=== PATIENT | female | born 1945 | race Caucasian/White ===

== ENCOUNTER 2019-05-11 12:19 | Outpatient (CLI) | payer MEDICARE, MEDICAID ==
[2019-05-11 13:28] LABS: BASOPHILS # (AUTO) 0.1 /CMM (0.0-0.2); BASOPHILS % (AUTO) 1.2 % (0.0-2.0); EOSINOPHILS % (AUTO) 3.6 % (0.0-6.0); HEMATOCRIT 33 % (33-45); HEMOGLOBIN 10.8 g/dL (11.5-14.8); LYMPHOCYTES % (AUTO) 13.2 % (20.0-44.0); MEAN CORPUSCULAR HGB CONC 33 g/dl (31.0-36.0); MEAN CORPUSCULAR VOLUME 103 fL (82-100); MONOCYTES # (AUTO) 0.4 /CMM (0.1-1.30); MONOCYTES % (AUTO) 5.5 % (2.0-12.0); NEUTROPHILS # (AUTO) 6.1 /CMM (1.8-8.9); NEUTROPHILS % (AUTO) 76.5 % (43.0-81.0); PLATELET COUNT (AUTO) 280 /CMM (150-450); RED BLOOD CELL COUNT(AUTO) 3.18 MIL/uL (4.0-5.2)
[2019-05-11 13:42] LABS: ALBUMIN 3.4 g/dL (3.4-5.0); BILIRUBIN,TOTAL 0.8 mg/dL (0.2-1.0); CREATININE 0.9 mg/dL (0.6-1.3); POTASSIUM 4.5 mmol/L (3.5-5.1); TOTAL PROTEIN, SERUM 6.9 g/dL (6.4-8.2)
[2019-05-11 13:51] LABS: FREE T4 (FREE THYROXINE) 0.94 ng/dL (0.76-1.46); THYROID STIMULATING HORMONE 2.117 uIU/mL (0.358-3.74)
== END 2019-05-11 23:59 | disposition home or self-care (01) ==
LOC: LAB 12:19
PROVIDERS: ATTEND Internal Medicine Interventional Cardiology
DX: I11.0 Hypertensive heart disease with heart failure (principal); E11.9 Type 2 diabetes mellitus without complications
CPT/HCPCS: 36415; 80053-TC; 84439-TC; 84443-TC; 85025-TC

== ENCOUNTER 2019-12-18 13:44 | Inpatient (IN) | payer MEDICARE, OTHER ==
[~2019-12-18] VITALS: Ht 165.1 cm; Wt 66.2 kg
--- NOTE | 2019-12-18 13:44 | NUR ---
PT BIB DAUGHTER FROM HOME C/O PALPITATIONS AND SOB AFTER WALKING. PT IS AAOX3, NOT IN RESPIRATORY DISTRESS, HOOKED TO BATCH MIXING TRUCK DRIVER, KEPT RESTED AND COMFORTABLE. WILL CONTINUE TO MONITOR.
--- NOTE | 2019-12-18 13:57 | NUR ---
SEEN AND EXAMINED BY .
[2019-12-18] MEDS ORDERED: AMIODARONE 150 MG in IV D5W 100 ML IV SCH (14:00)
[2019-12-18] MEDS ORDERED: AMIODARONE 450 MG in IV D5W 250 ML IV ONE (14:00)
--- NOTE | 2019-12-18 14:00 | NUR ---
IV LINE ESTABLISHED BLOOD DRAWN AND SENT TO LAB.
--- NOTE | 2019-12-18 14:08 | NUR ---
MEAT STRINGER AT BEDSIDE FOR XRAY.
[2019-12-18 14:19] LABS: BASOPHILS # (AUTO) 0.1 /CMM (0.0-0.2); BASOPHILS % (AUTO) 0.9 % (0.0-2.0); EOSINOPHILS % (AUTO) 3.1 % (0.0-6.0); HEMATOCRIT 33 % (33-45); HEMOGLOBIN 10.8 g/dL (11.5-14.8); LYMPHOCYTES # (AUTO) 0.9 /CMM (0.8-4.8); LYMPHOCYTES % (AUTO) 15.4 % (20.0-44.0); MEAN CORPUSCULAR HGB CONC 33 g/dl (31.0-36.0); MEAN CORPUSCULAR VOLUME 101 fL (82-100); MONOCYTES # (AUTO) 0.4 /CMM (0.1-1.30); MONOCYTES % (AUTO) 7.2 % (2.0-12.0); NEUTROPHILS # (AUTO) 4.3 /CMM (1.8-8.9); NEUTROPHILS % (AUTO) 73.4 % (43.0-81.0); PLATELET COUNT (AUTO) 228 /CMM (150-450); RED BLOOD CELL COUNT(AUTO) 3.26 MIL/uL (4.0-5.2); WHITE BLOOD COUNT (AUTO) 5.9 K/uL (4.3-11.0)
--- NOTE | 2019-12-18 14:30 | NUR ---
AMIODARONE DRIP STARTED WITH DISK FILTER. PT IS ON CARIDAC MONITOR, V/S STABLE, KEPT RESTED AND COMFORTABLE. WILL CONTINUE TO MONITOR.
[2019-12-18 14:32] LABS: ALANINE AMINOTRANSFERASE 92 U/L (12-78); ALBUMIN 3.3 g/dL (3.4-5.0); ALKALINE PHOSPHATASE 242 U/L (46-116); ASPARTATE AMINOTRANSFERASE 76 U/L (15-37); BILIRUBIN,DIRECT 0.3 mg/dL (0.0-0.2); BILIRUBIN,TOTAL 1.1 mg/dL (0.2-1.0); CALCIUM, SERUM 8.6 mg/dL (8.5-10.1); CARBON DIOXIDE 26 mmol/L (21-32); CHLORIDE 103 mmol/L (98-107); CREATININE 1.6 mg/dL (0.6-1.3); GLUCOSE 194 mg/dL (74-106); POTASSIUM 3.7 mmol/L (3.5-5.1); SODIUM SERUM 140 mmol/L (136-145); TOTAL PROTEIN, SERUM 6.5 g/dL (6.4-8.2); UREA NITROGEN, BLOOD 39 mg/dL (7-18)
[2019-12-18] MEDS ORDERED: APIX2.5T PO (14:36)
--- NOTE | 2019-12-18 14:39 | NUR ---
COVID SPECIMEN COLLECTED AND SENT TO LAB.
[2019-12-18] MEDS ORDERED: SITA1TAB2 PO (14:40)
[2019-12-18] MEDS ORDERED: VALS160T29 PO (14:40)
[2019-12-18] MEDS ORDERED: FURO40TA5 PO (14:40)
[2019-12-18] MEDS ORDERED: ROSU10TA29 PO (14:40)
[2019-12-18] MEDS ORDERED: SPIR25TA6 PO (14:40)
[2019-12-18] MEDS ORDERED: HYDR25TA4 PO (14:40)
[2019-12-18] MEDS ORDERED: FLUO20CA42 PO (14:40)
[2019-12-18] MEDS ORDERED: ISOS120T13 PO (14:40)
[2019-12-18] MEDS ORDERED: GLIM4TAB37 PO (14:40)
[2019-12-18] MEDS ORDERED: METO-358 PO (14:40)
--- NOTE | 2019-12-18 15:17 | NUR ---
CALLED [facility], PAGED DEAN
[2019-12-18] MEDS ORDERED: FUROSEMIDE 40 MG/4 ML VIAL IV ONE (15:30)
[2019-12-18] MEDS ORDERED: FUROSEMIDE 40 MG/4 ML VIAL ONE (15:48)
--- NOTE | 2019-12-18 16:15 | NUR ---
CALLED NURSING SUP FOR BED
--- NOTE | 2019-12-18 16:36 | NUR ---
REPORT GIVEN TO FILI LOPEZ FOR KELI. WITH ONGOING AMIODARONE DRIP.
--- NOTE | 2019-12-18 16:49 | NUR ---
BED 108
[2019-12-18] MEDS ORDERED: ACETAMINOPHEN 325 MG TABLET PO PRN (17:30)
[2019-12-18] MEDS ORDERED: ONDANSETRON HCL/PF 4 MG/2 ML VIAL IVP PRN (17:30)
[2019-12-18] MEDS ORDERED: HYDROCODONE/APAP 5/325MG TABLET PO PRN (17:30)
[2019-12-18] MEDS ORDERED: MAGNESIUM HYDROXIDE 30 ML UDC PO PRN (17:30)
[2019-12-18] MEDS ORDERED: Z GUARD REMEDY 2 OZ OINT TP PRN (17:30)
[2019-12-18] MEDS ORDERED: MAG HYDROX/AL HYDROX/SIMETH 30 ML UDC PO PRN (17:30)
[2019-12-18 18:00] VITALS: BP 119/79
[2019-12-18] MEDS ORDERED: AMIODARONE 450 MG in IV D5W 250 ML IV PRN (18:00)
--- NOTE | 2019-12-18 18:00 | NUR ---
RN TD1 REPORT TAKEN FROM ANTONIO . PATIENT CAME TO HOSPITAL DUE TO PALPITATION. AFTER A SHORT WALK PATIENT FELT SOB. AND BROUGHT TO HOSPITAL PATIENT A/OX 4 COOPERATIVE WITH CARE SPEAKS HAITIAN AND VENEZUELAN. PATIENT HX HTN CHF AND DM RAPID NEGATIVE. NKA , VITALS STABLE AT THIS TIME. NO SIGNS OF SOB, NO PAIN , NO ACUTE RESPIRATORY DISTRESS. PATIENT LABS 1.6 CREAT. 39 BUN. PATIENT HAS L 18 G AC , PATENT AND INTACT,NO SIGNS OF INFILTRATION OR S/S INFECTION. RECIVED FROM ER WITH AMNIODORON DRIP RUNNING @ 35.533 .KG/MIMN BED LOCKED LOWEST POSIITON CALL LIGHT WITH INREACH ALL SAFETY MEASURE IMPLEMENTED PER HOSPITAL POLICY. WILL ENDORSE TO PM SHIFT
[2019-12-18] MEDS: ATORVASTATIN 10 MG TABLET PO SCH (18:22)
[2019-12-18] MEDS: METOPROLOL SUCCINATE 50 MG TAB.SR.24H PO SCH (18:24)
--- NOTE | 2019-12-18 19:10 | NUR ---
RN NOTES RECEIVED PT ON BED AWAKE A/O X 4, ON O2 VIA NC @ 2L SPO2 98% NO COMPLAINTS OF PAIN, TELE MONITOR READS CONTROLLED AFIB ON AMIODARONE DRIP VIA LEFT AC @ 34.533MG/HR RATE INFUSING WELL, SAFETY MEASURE MAINTAINED BED ON LOWEST POSITION AND LOCKED SIDERAILS UP CALL LIGHT WITHIN REACH WILL CONT TO MONITOR
[2019-12-18 20:00] VITALS: BP 119/79
--- NOTE | 2019-12-18 20:30 | NUR ---
RN NOTES AMIODARONE DRIP RATE CHANGE TO 0.5MG/HR PER PROTOCOL LATEST V/S OF THE PT IS 119/79 HR 90 TELE MONITOR READS CONTROLLED AFIB 90'S WILL CONT TO MONITOR
[2019-12-19] VITALS: BP 114/68
--- NOTE | 2019-12-19 00:58 | NUR ---
0058 OBTAINED AN ORDER FROM KRISTI LIVE FOR EKG IN AM TO RE-EVAL AFIB RVR. ORDER NOTED AND CARRIED OUT.
[2019-12-19 04:00] VITALS: BP 129/85
[2019-12-19 06:17] LABS: BASOPHILS # (AUTO) 0.1 /CMM (0.0-0.2); EOSINOPHILS % (AUTO) 3.5 % (0.0-6.0); HEMATOCRIT 30 % (33-45); HEMOGLOBIN 10.3 g/dL (11.5-14.8); LYMPHOCYTES # (AUTO) 0.8 /CMM (0.8-4.8); MEAN CORPUSCULAR HGB CONC 34 g/dl (31.0-36.0); MEAN CORPUSCULAR VOLUME 100 fL (82-100); MONOCYTES # (AUTO) 0.5 /CMM (0.1-1.30); MONOCYTES % (AUTO) 7.6 % (2.0-12.0); NEUTROPHILS # (AUTO) 4.4 /CMM (1.8-8.9); NEUTROPHILS % (AUTO) 73.9 % (43.0-81.0); PLATELET COUNT (AUTO) 209 /CMM (150-450); RED BLOOD CELL COUNT(AUTO) 3.05 MIL/uL (4.0-5.2)
[2019-12-19 06:53] LABS: CALCIUM, SERUM 8.6 mg/dL (8.5-10.1); CREATININE 1.3 mg/dL (0.6-1.3); PHOSPHORUS 3.4 mg/dL (2.5-4.9); POTASSIUM 2.9 mmol/L (3.5-5.1)
--- NOTE | 2019-12-19 07:05 | NUR ---
PT AWAKE IN BED. A/O TO PERSON, PLACE, SITUATION. ON 2L/MIN NASAL CANNULA SPO2 96%. BILAT LOWER EXTREMITY EDEMA NOTED +1. ON TELE A FIB HR 90S. SKIN INTACT. L AC FLUSHED PATENT. DRESSING DRY AND INTACT. NO BP OR BLOOD DRAW ON R ARM NOTED AND INSTRUCTIONS ON HOB WALL. WILL MONITOR HR AND TELE THROUGHOUT THE DAY. MONITOR VS THROUGHOUT THE DAY. MONITOR LABS THROUGHOUT THE DAY AND REPORT NECESSARY. BED LOW, LOCKED, CALL LIGHT IN REACH, HOB ELEVATED, HOSPITAL POLICY SAFETY PRECAUTIONS IMPLEMENTED.
--- NOTE | 2019-12-19 07:14 | NUR ---
RN NOTES PT ON BED ASLEEP NO SIGN AND SYMPTOMS OF RESPIRATORY DISTRESS NO COMPLAINT OF PAIN TELE MONITOR READS SINUS RHYTHM WITH LBBB HR 90S SINCE 0600 THEN CONVERTED AGAIN TO CONTROLLED AFIB @ 0630, STILL ON AMIODARONE DRIP @ 0.5MG/HR NO SIGNIFICANT CHANGES ON CONDITION NOTED ALL NEEDS ATTENDED SAFETY MEASURE MAINTAINED BED ON LOWEST POSITION AND LOCKED SIDE RAILS UP X2 CALL LIGHT WITHIN REACH WILL ENDORSED TO AM SHIFT NURSE
[2019-12-19 08:00] VITALS: BP 127/81
[2019-12-19] MEDS: AMIODARONE HCL 200 MG TABLET PO SCH ×3 (09:00→17:38)
[2019-12-19] MEDS: ISOSORBIDE MONONITRATE (30MG) 30 MG TAB.SR.24H PO SCH (09:00)
[2019-12-19] MEDS: FUROSEMIDE 40 MG/4 ML VIAL IV SCH (09:01)
[2019-12-19] MEDS: POTASSIUM CHLORIDE 20 MEQ TAB.PRT.SR PO SCH ×4 (09:01→13:20)
[2019-12-19] MEDS: VALSARTAN 80 MG TABLET PO SCH (09:01)
[2019-12-19] MEDS: SPIRONOLACTONE 25 MG TABLET PO SCH (09:02)
[2019-12-19] MEDS: FLUOXETINE HCL 20 MG CAPSULE PO SCH (09:02)
[2019-12-19 09:18] LABS: THYROID STIMULATING HORMONE 1.637 uIU/mL (0.358-3.74)
--- NOTE | 2019-12-19 11:00 | NUR ---
INFORMED MARIA TERESA AND DEAN THAT PT EXPERIENCED 1 EPISODE OF EMESIS. ORDERED ZOFRAN PROVIDED. STARTED ORDERED PO AMIODARONE ORDERED AND DC IV AMIODARONE PER MARIA TERESA ORDERS. GIVE PO POTASSIUM ORDERED FOR 2.9 K LEVEL. HR NOW BETWEEN 50-120S. MARIA TERESA AND DEAN AWARE ALL PT STATUS. PT TOLERATING WELL. NO SOB. PT REMAINS IN A FIB 100-120.
[2019-12-19 12:00] VITALS: BP 94/45
--- NOTE | 2019-12-19 13:00 | NUR ---
PT TOLERATED SACRUM WOUND DEBRIDMENT WELL. MILD BLEEDING. APPLIED PRESSURE WITH GAUZE. COVERED WITH DAKINS SOLUTION, GAUZE, AND TAPED GAUZE AROUND SACRUM ORDERED. WILL MONITOR FOR BLEEDING. NO COMPLICATIONS NOTED. Addendum: 12/19/19 at 1911 by LAW CARTER RN CORRECTION WRONG PATIENT
[2019-12-19] MEDS ORDERED: AMIODARONE 150 MG in IV D5W 100 ML IV ONE (14:00)
[2019-12-19 16:00] VITALS: BP 115/86
[2019-12-19] MEDS: APIXABAN 2.5 MG TABLET PO SCH (17:38)
[2019-12-19] MEDS: METOPROLOL SUCCINATE 50 MG TAB.SR.24H PO SCH (17:39)
[2019-12-19] MEDS: ATORVASTATIN 10 MG TABLET PO SCH (17:39)
--- NOTE | 2019-12-19 19:05 | NUR ---
PT AWAKE IN BED. A/O TO PERSON, PLACE, SITUATION. ON 2L/MIN NASAL CANNULA SPO2 94-97%. BILAT LOWER EXTREMITY EDEMA NOTED +1 UNCHANGED. ON TELE A FIB HR 70S-100S. SKIN INTACT. L WRIST FLUSHED PATENT. DRESSING DRY AND INTACT. NO BP OR BLOOD DRAW ON R ARM NOTED AND INSTRUCTIONS ON HOB WALL. MONITORED HR AND TELE THROUGHOUT THE DAY. MONITORED VS THROUGHOUT THE DAY. MONITORED LABS THROUGHOUT THE DAY AND REPORTED NECESSARY. BED LOW, LOCKED, CALL LIGHT IN REACH, HOB ELEVATED, HOSPITAL POLICY SAFETY PRECAUTIONS IMPLEMENTED. ORDERS CARRIED OUT. PT TOLERATING WELL.
--- NOTE | 2019-12-19 19:10 | NUR ---
RN NOTES RECEIVED PT ON BED AWAKE A/O X 4, ON O2 VIA NC @ 2L SPO2 98% NO COMPLAINTS OF PAIN, TELE MONITOR READS CONTROLLED AFIB hr 120''S COMBUSTION ANALYST AWARE, SAFETY MEASURE MAINTAINED BED ON LOWEST POSITION AND LOCKED SIDERAILS UP CALL LIGHT WITHIN REACH WILL CONT TO MONITOR
[2019-12-19 20:00] VITALS: BP 112/75
[2019-12-20] VITALS: BP 90/56
[2019-12-20 04:00] VITALS: BP 104/61
[2019-12-20 06:43] LABS: BASOPHILS % (AUTO) 0.5 % (0.0-2.0); EOSINOPHILS % (AUTO) 0.8 % (0.0-6.0); HEMATOCRIT 30 % (33-45); HEMOGLOBIN 10.1 g/dL (11.5-14.8); LYMPHOCYTES # (AUTO) 0.8 /CMM (0.8-4.8); LYMPHOCYTES % (AUTO) 8.7 % (20.0-44.0); MEAN CORPUSCULAR HGB CONC 34 g/dl (31.0-36.0); MEAN CORPUSCULAR VOLUME 100 fL (82-100); MONOCYTES # (AUTO) 0.5 /CMM (0.1-1.30); MONOCYTES % (AUTO) 5.6 % (2.0-12.0); NEUTROPHILS # (AUTO) 7.7 /CMM (1.8-8.9); NEUTROPHILS % (AUTO) 84.4 % (43.0-81.0); PLATELET COUNT (AUTO) 194 /CMM (150-450); RED BLOOD CELL COUNT(AUTO) 2.99 MIL/uL (4.0-5.2); WHITE BLOOD COUNT (AUTO) 9.1 K/uL (4.3-11.0)
--- NOTE | 2019-12-20 06:50 | NUR ---
RN NOTES PT ON BED ASLEEP NO SIGN AND SYMPTOMS OF RESPIRATORY DISTRESS NO COMPLAINT OF PAIN TELE MONITOR READS CONTROLLED AFIB @ 0630, NO SIGNIFICANT CHANGES ON CONDITION NOTED ALL NEEDS ATTENDED SAFETY MEASURE MAINTAINED BED ON LOWEST POSITION AND LOCKED SIDE RAILS UP X2 CALL LIGHT WITHIN REACH WILL ENDORSED TO AM SHIFT NURSE
[2019-12-20 07:12] LABS: ALANINE AMINOTRANSFERASE 62 U/L (12-78); ALBUMIN 2.8 g/dL (3.4-5.0); ALKALINE PHOSPHATASE 214 U/L (46-116); ASPARTATE AMINOTRANSFERASE 24 U/L (15-37); CALCIUM, SERUM 8.5 mg/dL (8.5-10.1); CARBON DIOXIDE 28 mmol/L (21-32); CHLORIDE 100 mmol/L (98-107); CREATININE 1.4 mg/dL (0.6-1.3); GLUCOSE 254 mg/dL (74-106); MAGNESIUM 2.1 mg/dL (1.8-2.4); PHOSPHORUS 3.2 mg/dL (2.5-4.9); POTASSIUM 3.8 mmol/L (3.5-5.1); SODIUM SERUM 136 mmol/L (136-145); TOTAL PROTEIN, SERUM 5.9 g/dL (6.4-8.2); UREA NITROGEN, BLOOD 34 mg/dL (7-18)
--- NOTE | 2019-12-20 07:30 | NUR ---
MAURI RN AM NOTES PT AWAKE IN BED. A/O TO PERSON, PLACE, SITUATION. ON 2L/MIN NASAL CANNULA SPO2 100%. AFIB ON MONITOR WITH BBB AND AVB.DENIES ANY CHEST PAIN OR DISCOMFORT. LEFT HAND G 20 IV FLUSHES WELL, SITE CLEAR. CARDIAC DIET. BILAT LOWER EXTREMITY EDEMA NOTED +1. SKIN INTACT. NO BP OR BLOOD DRAW ON R ARM NOTED AND INSTRUCTIONS ON HOB WALL. AMBULATORY WITH ASSIST. BED LOW, LOCKED, CALL LIGHT IN REACH, HOB ELEVATED, DISCUSSED PLAN OF CARE. VERBALIZED UNDERSTANDING. HOSPITAL POLICY SAFETY PRECAUTIONS IMPLEMENTED. WILL MONITOR.
[2019-12-20 08:00] VITALS: BP 100/67
[2019-12-20] MEDS: FUROSEMIDE 40 MG/4 ML VIAL IV SCH (08:21)
[2019-12-20] MEDS: FLUOXETINE HCL 20 MG CAPSULE PO SCH (08:21)
[2019-12-20] MEDS: SPIRONOLACTONE 25 MG TABLET PO SCH (08:21)
[2019-12-20] MEDS: ISOSORBIDE MONONITRATE (30MG) 30 MG TAB.SR.24H PO SCH (08:22)
[2019-12-20] MEDS: AMIODARONE HCL 200 MG TABLET PO SCH (08:23)
[2019-12-20] MEDS: VALSARTAN 80 MG TABLET PO SCH (08:23)
[2019-12-20] MEDS: APIXABAN 2.5 MG TABLET PO SCH ×2 (08:24→16:54)
--- NOTE | 2019-12-20 09:30 | NUR ---
RN NOTES DUE MEDS GIVEN
[2019-12-20] MEDS: METOPROLOL SUCCINATE 50 MG TAB.SR.24H PO SCH ×2 (10:06→16:54)
[2019-12-20 12:00] VITALS: BP 92/56
[2019-12-20] MEDS ORDERED: IOHEXOL-350 100 ML VIAL IV ONE (12:14)
[2019-12-20] MEDS ORDERED: IV NS 0.9% 250 ML IV ONE (12:14)
[2019-12-20] MEDS ORDERED: METOPROLOL TARTRATE INJ 5 MG/5 ML AMPUL ONE (13:17)
[2019-12-20] MEDS ORDERED: NITROGLYCERIN 0.4 MG/TAB BOTTLE ONE (13:17)
[2019-12-20] MEDS: METOPROLOL TARTRATE INJ 5 MG/5 ML AMPUL IVP PRN ×2 (13:18→13:23)
[2019-12-20] MEDS ORDERED: NITROGLYCERIN 0.4 MG/TAB BOTTLE SL ONE (13:30)
[2019-12-20] MEDS ORDERED: IV NS 0.9% 500 ML IV PRN (13:30)
--- NOTE | 2019-12-20 13:33 | NUR ---
brought in fro CTA heart; consent signed, denies CP or SOb at this time; CTA heart completed; pt received Metoprolol 5mg IVPx 2 doses and NTG SL 1 tab; VSS after procedure; transferred back to unit viabed with same O2 ongoing at 2LPM; handoff report given to FILI Mayfield
--- NOTE | 2019-12-20 13:43 | NUR ---
RN NOTES BACK FROM CT ANGIOGRAM OF THE HEART.
[2019-12-20 16:00] VITALS: BP 109/69
[2019-12-20] MEDS: ATORVASTATIN 10 MG TABLET PO SCH (17:01)
--- NOTE | 2019-12-20 18:30 | NUR ---
CLERK SPECIALIST CLOSING NOTES PT RESTING IN BED, A/O X 3. ON 2L/MIN NASAL CANNULA SPO2 100%. AFIB ON MONITOR WITH BBB AND AVB.DENIES ANY CHEST PAIN OR DISCOMFORT. LEFT HAND G 20 IV AND LEFT AC G18 IV ACCESS,BOTH FLUSHES WELL, BOTH SITES CLEAR. CARDIAC DIET. BILAT LOWER EXTREMITY EDEMA NOTED +1. SKIN INTACT. NO BP OR BLOOD DRAW ON R ARM NOTED AND INSTRUCTIONS ON HOB WALL. AMBULATORY WITH ASSIST. BED LOW, LOCKED, CALL LIGHT IN REACH, HOB ELEVATED, HOSPITAL POLICY SAFETY PRECAUTIONS IMPLEMENTED. ALL NEEDS MET.NO OTHER SIGNIFICANT CHANGE IN CONDITION. WILL ENDORSE TO NEXT SHIFT FOR KELI.
[2019-12-20 20:00] VITALS: BP 107/68
[2019-12-21] VITALS: BP_SYST 114; BP_SYST 144; BP_DIAS 77
[2019-12-21 04:00] VITALS: BP 107/80
[2019-12-21 06:16] LABS: BASOPHILS % (AUTO) 0.6 % (0.0-2.0); EOSINOPHILS % (AUTO) 2.3 % (0.0-6.0); HEMATOCRIT 32 % (33-45); HEMOGLOBIN 10.5 g/dL (11.5-14.8); LYMPHOCYTES # (AUTO) 0.7 /CMM (0.8-4.8); LYMPHOCYTES % (AUTO) 9.7 % (20.0-44.0); MEAN CORPUSCULAR HGB CONC 33 g/dl (31.0-36.0); MEAN CORPUSCULAR VOLUME 101 fL (82-100); MONOCYTES # (AUTO) 0.5 /CMM (0.1-1.30); MONOCYTES % (AUTO) 6.9 % (2.0-12.0); NEUTROPHILS # (AUTO) 6.1 /CMM (1.8-8.9); NEUTROPHILS % (AUTO) 80.5 % (43.0-81.0); PLATELET COUNT (AUTO) 176 /CMM (150-450); RED BLOOD CELL COUNT(AUTO) 3.12 MIL/uL (4.0-5.2); WHITE BLOOD COUNT (AUTO) 7.6 K/uL (4.3-11.0)
--- NOTE | 2019-12-21 06:26 | NUR ---
RN notes Resting comfortably in bed with no distress noted. Breathing even and unlabored. On 2lpm via nasal cannula tolerating well. Alert and oriented with episodes of confusion. No complaint of pain or discomfort. Vital signs wnl. No significant change of condition. Kept clean and dry. Will endorse to next shift for continuity of care.
[2019-12-21 06:37] LABS: CARBON DIOXIDE 29 mmol/L (21-32); CHLORIDE 100 mmol/L (98-107); CREATININE 1.5 mg/dL (0.6-1.3); GLUCOSE 277 mg/dL (74-106); MAGNESIUM 2.4 mg/dL (1.8-2.4); PHOSPHORUS 3.8 mg/dL (2.5-4.9); POTASSIUM 4.4 mmol/L (3.5-5.1); SODIUM SERUM 135 mmol/L (136-145); UREA NITROGEN, BLOOD 37 mg/dL (7-18)
--- NOTE | 2019-12-21 07:30 | NUR ---
RN OPENING NOTE Patient in bed, A/Ox4, resting, on NC at 2L of O2, SPO2 is 96%, No SOB noted, respirations even and non labored, tolerating well, on tele-monitor, SR A-fib, with BBB. IV line noted on L hand, intact, IV line noted L ac, intact , patent and flushed, Cardiac diet noted. Safety measures in place, bed in lowest position, bed alarm is on, call light in reach will cont to monitor
[2019-12-21 08:00] VITALS: BP 104/65
[2019-12-21] MEDS: SPIRONOLACTONE 25 MG TABLET PO SCH (08:19)
[2019-12-21] MEDS: FLUOXETINE HCL 20 MG CAPSULE PO SCH (08:19)
[2019-12-21] MEDS: VALSARTAN 80 MG TABLET PO SCH (08:20)
[2019-12-21] MEDS: METOPROLOL SUCCINATE 50 MG TAB.SR.24H PO SCH (08:20)
[2019-12-21] MEDS: ISOSORBIDE MONONITRATE (30MG) 30 MG TAB.SR.24H PO SCH (08:21)
[2019-12-21] MEDS: APIXABAN 2.5 MG TABLET PO SCH (08:37)
--- NOTE | 2019-12-21 08:37 | NUR ---
PER DR TUTTLE, HOLD ELIQUIS DUE FOLLOWING PROCEDURE ANGIOGRAM ON 12/24/2019
[2019-12-21] MEDS: CARVEDILOL 12.5 MG TABLET PO SCH ×2 (10:00→21:02)
--- NOTE | 2019-12-21 10:00 | NUR ---
For Coreg will hold, patient BP is 104/65, HR 95
[2019-12-21 12:00] VITALS: BP 110/67
[2019-12-21 16:00] VITALS: BP 114/87
[2019-12-21] MEDS: ATORVASTATIN 10 MG TABLET PO SCH (18:11)
--- NOTE | 2019-12-21 19:02 | NUR ---
RN CLOSING NOTS Patient remains in room, resting comfortably, tolerating O2 flow well, no SOB or resp distress noted, denies pain. Comfort needs attended, safety measures in place, call light in reach, education regarding diagnosis and following procedure provided. Tele-monitor attached, occasional V tach, SR readings. Will endorse to PM shift RN for KELI
[2019-12-21 20:00] VITALS: BP 127/70
[2019-12-22] VITALS: BP 103/27
[2019-12-22 04:00] VITALS: BP 112/73
--- NOTE | 2019-12-22 04:12 | NUR ---
RN notes Patient is more alert than last night. Verbally able to communicate needs. Resting comfortably in bed with no distress noted. Breathing even and unlabored. On 2lpm via nasal cannula tolerating well. No complaint of pain or discomfort. Vital signs wnl. No significant change of condition. Kept clean and dry. Will endorse to next shift for continuity of care.
[2019-12-22 06:48] LABS: BASOPHILS # (AUTO) 0.1 /CMM (0.0-0.2); EOSINOPHILS % (AUTO) 2.8 % (0.0-6.0); HEMATOCRIT 30 % (33-45); LYMPHOCYTES # (AUTO) 0.7 /CMM (0.8-4.8); LYMPHOCYTES % (AUTO) 11.1 % (20.0-44.0); MEAN CORPUSCULAR HGB CONC 33 g/dl (31.0-36.0); MEAN CORPUSCULAR VOLUME 100 fL (82-100); MONOCYTES # (AUTO) 0.4 /CMM (0.1-1.30); MONOCYTES % (AUTO) 7.1 % (2.0-12.0); NEUTROPHILS # (AUTO) 4.7 /CMM (1.8-8.9); PLATELET COUNT (AUTO) 165 /CMM (150-450); RED BLOOD CELL COUNT(AUTO) 2.99 MIL/uL (4.0-5.2)
[2019-12-22 07:02] LABS: CALCIUM, SERUM 8.9 mg/dL (8.5-10.1); CARBON DIOXIDE 28 mmol/L (21-32); CHLORIDE 95 mmol/L (98-107); CREATININE 1.4 mg/dL (0.6-1.3); GLUCOSE 318 mg/dL (74-106); POTASSIUM 4.3 mmol/L (3.5-5.1); SODIUM SERUM 129 mmol/L (136-145); UREA NITROGEN, BLOOD 38 mg/dL (7-18)
--- NOTE | 2019-12-22 07:43 | NUR ---
DIRECTOR OF PUBLICATIONS NOTE PT IN BED, A/OX3 WITH MILD CONFUSION. PT CURRENTLY ON 3L NC, SATURATION AT 97%. LUNG SOUNDS CLEAR BILATERALLY. NO RESPIRATORY DISTRESS OR SOB. PT HAS LEFT HAND #20 INTACT AND FLUSHED WELL. NO SIGNS OF INFECTION OR INFILTRATION. LAC #20 INFILTRATED AND REMOVED AND DISCONTINUED. PT ON BOBBIN LOOSE END FINDER SHOWING A-FIB. PT IN BED LOWEST LOCKED POSITION, CALL LIGHT WITHIN REACH. ALL SAFETY MEASURES IN PLACE. WILL CONTINUE TO MONITOR CLOSELY.
[2019-12-22 08:00] VITALS: BP 127/82
[2019-12-22] MEDS: FLUOXETINE HCL 20 MG CAPSULE PO SCH (08:18)
[2019-12-22] MEDS: ISOSORBIDE MONONITRATE (30MG) 30 MG TAB.SR.24H PO SCH (08:19)
[2019-12-22] MEDS: SPIRONOLACTONE 25 MG TABLET PO SCH (08:20)
[2019-12-22] MEDS: CARVEDILOL 12.5 MG TABLET PO SCH ×2 (08:20→20:51)
[2019-12-22] MEDS: VALSARTAN 80 MG TABLET PO SCH ×2 (08:20→09:00)
[2019-12-22] MEDS ORDERED: IV NS 0.9% 1,000 ML IV PRN (09:30)
[2019-12-22] MEDS: ENOXAPARIN SODIUM 60 MG/0.6 ML DISP.SYRIN SQ SCH ×2 (10:24→20:51)
[2019-12-22 12:00] VITALS: BP 119/70
--- NOTE | 2019-12-22 13:36 | NUR ---
NURSE AIDE NOTE: 160 MG VALSARTAN NOT ADMINISTERED, BP 119/70. ALL OTHER AM MEDS ADMINISTERED.
[2019-12-22 16:00] VITALS: BP 121/73
[2019-12-22] MEDS: ATORVASTATIN 10 MG TABLET PO SCH (18:19)
--- NOTE | 2019-12-22 18:27 | NUR ---
PT IN BED, A/O X 3, MILD CONFUSION AT TIME. PT ON NC 3 L. SATURATING AT 96%. NO RESPIRATORY DISTRESS OR SOB. BANANA ROOM CUTTER SHOWS A-FIB. PT SKIN REMAINS INTACT, NO CHANGES. PT REMAINS ON CARDIAC LOW FAT DIET. PT PREVIOUSLY HAD LAC #20, LEFT WRIST #22, BOTH D/C. PT HAS LEFT HAND #20 TKO, INTACT AND NO SIGNS OF INFECTION OR INFILTRATION. PT ALBE TO MOVE TO BEDSIDE COMMODE WITH X 1 ASSIST, 3X TIMES. PT IN BED LOWEST LOCKED POSITION. CALL LIGHT WITHIN REACH. ALL SAFETY MEASURES IN PLACE. WILL REPORT TO ONCCHACORTA RN FOR KELI. Addendum: 12/22/19 at 1833 by ALEKSANDRA JACOBSEN RN STAFF PHYSICIAN NOTE: PT IN BED, A/O X 3, MILD CONFUSION AT TIME. PT ON NC 3 L. SATURATING AT 96%. NO RESPIRATORY DISTRESS OR SOB. BANANA ROOM CUTTER SHOWS A-FIB. PT SKIN REMAINS INTACT, NO CHANGES. PT REMAINS ON CARDIAC LOW FAT DIET. PT PREVIOUSLY HAD LAC #20, LEFT WRIST #22, BOTH D/C. PT HAS LEFT HAND #20 TKO, INTACT AND NO SIGNS OF INFECTION OR INFILTRATION. PT ALBE TO MOVE TO BEDSIDE COMMODE WITH X 1 ASSIST, 3X TIMES. PT IN BED LOWEST LOCKED POSITION. CALL LIGHT WITHIN REACH. ALL SAFETY MEASURES IN PLACE. WILL REPORT TO ONCOMING RN FOR KELI.
--- NOTE | 2019-12-22 19:05 | NUR ---
RN NOTE PATIENT IS 74 Y/O FEMALE WITH DX OF AFIB WITH RVR. PATIENT IS AWAKE, ALERT, ORIENTED X3, CURRENTLY WATCHING TV. ABLE TO MAKE NEEDS KNOWN, SPEECH IS CLEAR. ON 3 LITERS O2 VIA NC, O2 SAT IS 98% AT THIS TIME. BREATHING IS EVEN AND UNLABORED. NO SOB NOTED AT THIS TIME. PATIENT IS AMBULATORY WITH ASSIST. ABLE TO USE BEDSIDE COMMODE. SKIN IS INTACT. IV SITE ON LEFT HAND GAUGE 20 IS CLEAN, DRY, AND PATENT. NO APPARENT DISTRESS NOTED AT THIS TIME. NO C/O OF PAIN AT THIS TIME. CALL LIGHT IS WITHIN EASY REACH. WILL CONTINUE TO MONITOR.
[2019-12-22 20:00] VITALS: BP 109/71
[2019-12-23] VITALS: BP 128/89
[2019-12-23 04:00] VITALS: BP 131/88
--- NOTE | 2019-12-23 06:49 | NUR ---
RN NOTE PATIENT REMAINED STABLE THROUGHOUT THE NIGHT. NO SIGNIFICANT CHANGES NOTED. PATIENT IS KEPT CLEAN, DRY, AND COMFORTABLE. ALL DUE MEDS GIVEN ORDERED AND TOLERATED WELL. NO COMPLAINTS OF ANY PAIN. ALL NEEDS ATTENDED AND MET. WILL CONTINUE TO MONITOR.
[2019-12-23 06:51] LABS: BASOPHILS # (AUTO) 0.1 /CMM (0.0-0.2); BASOPHILS % (AUTO) 1.1 % (0.0-2.0); EOSINOPHILS % (AUTO) 1.8 % (0.0-6.0); HEMATOCRIT 31 % (33-45); HEMOGLOBIN 10.6 g/dL (11.5-14.8); LYMPHOCYTES # (AUTO) 0.6 /CMM (0.8-4.8); LYMPHOCYTES % (AUTO) 8.5 % (20.0-44.0); MEAN CORPUSCULAR HGB CONC 34 g/dl (31.0-36.0); MEAN CORPUSCULAR VOLUME 99 fL (82-100); MONOCYTES # (AUTO) 0.5 /CMM (0.1-1.30); MONOCYTES % (AUTO) 6.8 % (2.0-12.0); NEUTROPHILS % (AUTO) 81.8 % (43.0-81.0); PLATELET COUNT (AUTO) 181 /CMM (150-450); RED BLOOD CELL COUNT(AUTO) 3.16 MIL/uL (4.0-5.2); WHITE BLOOD COUNT (AUTO) 7.3 K/uL (4.3-11.0)
[2019-12-23 07:11] LABS: ALANINE AMINOTRANSFERASE 82 U/L (12-78); ALKALINE PHOSPHATASE 251 U/L (46-116); ASPARTATE AMINOTRANSFERASE 26 U/L (15-37); BILIRUBIN,TOTAL 0.9 mg/dL (0.2-1.0); CALCIUM, SERUM 9.2 mg/dL (8.5-10.1); CARBON DIOXIDE 26 mmol/L (21-32); CHLORIDE 98 mmol/L (98-107); CREATININE 1.4 mg/dL (0.6-1.3); GLUCOSE 347 mg/dL (74-106); MAGNESIUM 2.3 mg/dL (1.8-2.4); PHOSPHORUS 3.3 mg/dL (2.5-4.9); POTASSIUM 4.8 mmol/L (3.5-5.1); SODIUM SERUM 133 mmol/L (136-145); TOTAL PROTEIN, SERUM 6.5 g/dL (6.4-8.2); UREA NITROGEN, BLOOD 39 mg/dL (7-18)
--- NOTE | 2019-12-23 07:43 | NUR ---
SPRING COILER HAND NOTE: PT IS AWAKE, ALERT AND ORIENTED X3 WITH MILD CONFUSION, EATING BREAKFAST. PT ON 3L NC O2 SAT 97%. BREATHING IS EVEN WITH SOB. WILL INFORM JEWEL INSPECTOR AND MD OF PT CONDITION. LUNGS SOUNDS CLEAR BILATERALLY, DIMINISHED AT BASES. PT ON SYSTEM OPERATION SUPERINTENDENT SHOWING A-FIB, HR 82. PT HAS LEFT HAND #22, WITH NS RUNNING 70 ML/HR. IV SITE IS INTACT WITH NO SIGNS OF INFECTION OR INFILTRATION. PT IN BED LOWEST LOCKED POSITION. CALL LIGHT WITHIN REACH. ALL SAFETY MEASURES IN PLACE. WILL CONTINUE TO MONITOR CLOSELY.
[2019-12-23 08:00] VITALS: BP 127/89
[2019-12-23] MEDS: ISOSORBIDE MONONITRATE (30MG) 30 MG TAB.SR.24H PO SCH (08:39)
[2019-12-23] MEDS: FLUOXETINE HCL 20 MG CAPSULE PO SCH (08:40)
[2019-12-23] MEDS: VALSARTAN 80 MG TABLET PO SCH (08:40)
[2019-12-23] MEDS: CARVEDILOL 12.5 MG TABLET PO SCH ×2 (08:41→20:32)
[2019-12-23] MEDS: SPIRONOLACTONE 25 MG TABLET PO SCH (08:41)
[2019-12-23] MEDS: ENOXAPARIN SODIUM 60 MG/0.6 ML DISP.SYRIN SQ SCH (08:44)
[2019-12-23 09:49] LABS: ABG OXYGEN SATURATION 92.1 % (92.0-98.5); ABG PCO2 46.9 mmHg (35.0-45.0); ABG PH 7.343 (7.350-7.450); ABG PO2 66.7 mmHg (75.0-100.0); AaDO2 106.6 mmHg; O2Hb 91.2 % (94.0-97.0); SITE, ABG Left Radial; VENT MODE, BG 3 LPM
[2019-12-23] MEDS: FUROSEMIDE 40 MG/4 ML VIAL IV SCH ×3 (10:01→17:01)
[2019-12-23 12:00] VITALS: BP 100/74
[2019-12-23] MEDS: BLOOD SUGAR DIAGNOSTIC 1 EACH STRIP VI SCH ×3 (12:48→21:21)
--- NOTE | 2019-12-23 12:50 | NUR ---
STORY TELLER - CHECK PATIENT BS 430 CALLED PRIMARY FOR ORDERS TELEPHONE ORDER - MODERATE SLIDING SCALE ACCUCHECK ACHS
[2019-12-23] MEDS: INSULIN REGULAR, HUMAN 100 UNIT/ML 3 ML VIAL SQ PRN ×2 (12:51→17:26)
[2019-12-23] MEDS ORDERED: DEXTROSE 50%-WATER 50 ML DISP.SYRIN IV PRN (13:00)
[2019-12-23 16:00] VITALS: BP 106/70
[2019-12-23] MEDS: ATORVASTATIN 10 MG TABLET PO SCH (17:01)
--- NOTE | 2019-12-23 18:00 | NUR ---
PAGEANT DIRECTOR NOTES: PT RECEIVED ALL DOSES OF LASIX PRESCRIBED BY MD. PT DENIES SOB AFTER MEDICATION INTERVENTION. NC INCREASED TO 4L PER MD ORDERS. PT SATURATION 97%.
--- NOTE | 2019-12-23 19:04 | NUR ---
DOUBLE BOTTOM DRIVER NOTE: PT IN BED, A/0X2. PT ON 4L NC O2 SATURATION 97%. PT NOT EXPERIENCING ANY SOB OR RESPIRATORY AT THIS TIME. PT APPETITE IMPROVED AFTER RECEIVING LASIX AND INSULIN. PT ON MONITOR SHOWING AFIB 100S. PT HAS 1X BM, HARD SMALL STOOL, PT REFUSED PRN MEDICATION FOR CONSTIPATION. PT IS AMBULATORY WITH 1X ASSIST, WITH SKIN INTACT. PT ON CARDIAC LOW FAT DIET. PT HAS LEFT HAND #22 INTACT, NO SIGNS OF INFECTION OR INFILTRATION. BED IN LOWEST LOCKED POSITION. CALL LIGHT WITHIN REACH. ALL SAFETY MEASURES IN PLACE. WILL GIVE REPORT TO ONCOMING RN FOR KELI
--- NOTE | 2019-12-23 19:40 | NUR ---
APPLICATION SOFTWARE ENGINEER NOTE, PATIENT IN BED, SLEEPING AT THIS TIME BUT AROUSES TO VERBAL STIMULI, ON 4L NC O2 SATURATION WITH OPTIMAL O2 SAT LEVEL, AFIB CONTROLLED IN TELE MONITOR, WITH HR HIGH 90S AT THIS TIME, PIV LINE LEFT HAND #22 INTACT, NO SIGNS OF INFECTION OR INFILTRATION, BED LOCKED AND LOWEST POSITION, CALL LIGHT WITHIN REACH, ALL SAFETY MEASURES IN PLACE, WILL CONTINUE TO MONITOR CLOSELY.
[2019-12-23 20:00] VITALS: BP 113/63
[2019-12-23] MEDS: *INSULIN REGULAR(HUMULIN R)HUM 100 UNIT/ML VIAL SQ PRN (21:26)
[2019-12-24] VITALS: BP 103/60
--- NOTE | 2019-12-24 | NUR ---
DAIRY SCIENCE TEACHER NOTES, WILL PUT PATIENT NPO AT THIS TIME FOR POSSIBLE TAX DIRECTOR PROCEDURE.
[2019-12-24 04:00] VITALS: BP 107/70
[2019-12-24 05:49] LABS: BASOPHILS # (AUTO) 0.1 /CMM (0.0-0.2); BASOPHILS % (AUTO) 1.1 % (0.0-2.0); EOSINOPHILS % (AUTO) 1.8 % (0.0-6.0); HEMATOCRIT 31 % (33-45); HEMOGLOBIN 10.4 g/dL (11.5-14.8); LYMPHOCYTES # (AUTO) 0.7 /CMM (0.8-4.8); LYMPHOCYTES % (AUTO) 11.2 % (20.0-44.0); MEAN CORPUSCULAR HGB CONC 33 g/dl (31.0-36.0); MEAN CORPUSCULAR VOLUME 100 fL (82-100); MONOCYTES # (AUTO) 0.5 /CMM (0.1-1.30); MONOCYTES % (AUTO) 7.3 % (2.0-12.0); NEUTROPHILS # (AUTO) 5.3 /CMM (1.8-8.9); NEUTROPHILS % (AUTO) 78.6 % (43.0-81.0); PLATELET COUNT (AUTO) 195 /CMM (150-450); RED BLOOD CELL COUNT(AUTO) 3.14 MIL/uL (4.0-5.2); WHITE BLOOD COUNT (AUTO) 6.7 K/uL (4.3-11.0)
[2019-12-24] MEDS ORDERED: IV SET PRIMARY PUMP SET 1 EA INFUS.SET MC ONE (05:52)
[2019-12-24] MEDS ORDERED: IV NS 0.9% 1,000 ML ONE (05:52)
[2019-12-24] MEDS ORDERED: IODIXANOL 150 ML IV ONE (05:53)
[2019-12-24] MEDS ORDERED: LIDOCAINE HCL/PF 1% 30 ML SDV ONE (05:55)
[2019-12-24 06:06] LABS: ALANINE AMINOTRANSFERASE 57 U/L (12-78); ALBUMIN 2.6 g/dL (3.4-5.0); ALKALINE PHOSPHATASE 203 U/L (46-116); ASPARTATE AMINOTRANSFERASE 14 U/L (15-37); CALCIUM, SERUM 8.6 mg/dL (8.5-10.1); CARBON DIOXIDE 30 mmol/L (21-32); CHLORIDE 99 mmol/L (98-107); CREATININE 1.4 mg/dL (0.6-1.3); GLUCOSE 174 mg/dL (74-106); PHOSPHORUS 3.2 mg/dL (2.5-4.9); POTASSIUM 4.1 mmol/L (3.5-5.1); SODIUM SERUM 136 mmol/L (136-145); TOTAL PROTEIN, SERUM 5.7 g/dL (6.4-8.2); UREA NITROGEN, BLOOD 39 mg/dL (7-18)
--- NOTE | 2019-12-24 06:21 | NUR ---
MEMORY CARE PROGRAM RESIDENT NOTE, PATIENT LEFT FOR TIRE BAGGER PROCEDURE, WILL BE REPORT ABOUT PATIENT TO ASSIGNED NURSE, PER NURSE FROM TIRE BAGGER IF PATIENT HAS THEATRE DIRECTOR WILL GO ICU AFTER PROCEDURE.
--- NOTE | 2019-12-24 06:21 | NUR ---
CREMATORY ATTENDANT NOTES, PATIENT LEFT FOR OTOLARYNGOLOGY REP FOR PROCEDURE AT THIS TIME ACCOMPANIED BY 3 NURSES IN STABLE CONDITION, A/O X3 ABLE TO VERBALIZE NEEDS AND CONCERNS.
[2019-12-24] MEDS ORDERED: NITROGLYCERIN ICAR 1,000 MCG/10 ML VIAL ICAR ONE (07:01)
[2019-12-24] MEDS ORDERED: MIDAZOLAM HCL 2 MG/2ML VIAL ONE (07:12)
[2019-12-24] MEDS ORDERED: FENTANYL PF 100MCG/2ML AMPUL ONE (07:12)
[2019-12-24] MEDS ORDERED: HEPARIN SODIUM, PORCINE 1,000 UNIT/ML VIAL ONE (07:31)
[2019-12-24] MEDS ORDERED: IODIXANOL 320MG/ML 100 ML IV ONE (07:38)
[2019-12-24 08:00] VITALS: BP 119/66
--- NOTE | 2019-12-24 08:30 | NUR ---
RN OPENING NOTE Received patient brought here by Computer Analyst with 2 RN. Alert awake on NC 3L tolerating well. O2 sat 98%. Patient has L Hand #22, and TR Band with 16ml air no signs of bleeding, pulse and circulation present. Has R Forearm #20 flushes well. Blood sugar checked and offered breakfast. Patient able to swallow with no difficulty. Vital signs within normal limits. Safety measures reinforced. Call light within reach. Will cont to monitor.
[2019-12-24] MEDS: BLOOD SUGAR DIAGNOSTIC 1 EACH STRIP VI SCH ×4 (08:44→22:59)
[2019-12-24] MEDS: ISOSORBIDE MONONITRATE (30MG) 30 MG TAB.SR.24H PO SCH (08:45)
[2019-12-24] MEDS: CARVEDILOL 12.5 MG TABLET PO SCH ×3 (08:45→22:47)
[2019-12-24] MEDS: SPIRONOLACTONE 25 MG TABLET PO SCH (08:46)
[2019-12-24] MEDS: VALSARTAN 80 MG TABLET PO SCH (08:46)
[2019-12-24] MEDS: FLUOXETINE HCL 20 MG CAPSULE PO SCH (08:46)
[2019-12-24] MEDS: INSULIN REGULAR, HUMAN 100 UNIT/ML 3 ML VIAL SQ PRN ×4 (08:47→23:00)
[2019-12-24] MEDS ORDERED: IV NS 0.9% 1,000 ML IV ONE (09:00)
--- NOTE | 2019-12-24 09:00 | NUR ---
RECEIVED ORDER FROM LINE CREW SUPERVISOR TO START NS @ 100ML/HR X6 HRS AND TO DEFLATE 3-5ML OF AIR Q15 MINS.
--- NOTE | 2019-12-24 10:45 | NUR ---
DEFLATE 0915 3ML AIR BP 119/66 HR 103 DEFLATE 0930 3ML AIR BP 96/59 HR 109 DEFLATE 0945 3ML AIR BP 94/62 HR 94 DEFLATE 1000 4ML AIR BP 94/56 HR 101
[2019-12-24 12:00] VITALS: BP 104/56
--- NOTE | 2019-12-24 13:45 | NUR ---
PATIENT'S TR BAND REMOVED NO SIGNS OF UNCONTROLLED BLEEDING. NO CO PAIN OR DISCOMFORT. POSITIVE PULSE AND CIRCULATION.
[2019-12-24 16:00] VITALS: BP 111/76
[2019-12-24] MEDS: ATORVASTATIN 10 MG TABLET PO SCH (17:20)
--- NOTE | 2019-12-24 19:35 | NUR ---
ACTIVITIES THERAPIST NOTE, PATIENT IN BED, ON 4L NC O2 SATURATION WITH OPTIMAL O2 SAT LEVEL, BREATHING EVEN AND UNLABORED, NO S/S OF ANY SOB/ACUTE DISTRESS, PAIN OR DISCOMFORT NOTED AT THIS TIME, AFIB CONTROLLED IN TELE MONITOR, WITH HR 80-100s AT THIS TIME, PIV LINE LEFT HAND #22 INTACT, AND RIGHT FA 20G, BOTH PATENT AND INTACT, NO SIGNS OF INFECTION OR INFILTRATION, LEFT RADIAL PULSE PALPABLE, NO CIRCULATION COMPROMISED, BED LOCKED AND LOWEST POSITION, CALL LIGHT WITHIN REACH, ALL SAFETY MEASURES IN PLACE, WILL CONTINUE TO MONITOR CLOSELY.
--- NOTE | 2019-12-24 19:35 | NUR ---
ENDORSED TO CHIEF RADIOLOGIC TECHNOLOGIST NURSE FOR KELI
[2019-12-24 20:00] VITALS: BP 105/55
[2019-12-25] VITALS: BP 92/54
--- NOTE | 2019-12-25 03:52 | NUR ---
PSYCHOLOGIST COUNSELING NOTES, PATIENT ENDORSED TO ISABEL PENN FOR CONTINUATION OF CARE, PATIENT WITH BP 93/46, PATIENT BREATHING EVEN AND UNLABORED, NO DISTRESS NOTED. Addendum: 12/25/19 at 1553 by MIKAELA ALANIZ RN WRONG TIME.
[2019-12-25 04:00] VITALS: BP 115/80
[2019-12-25 06:25] LABS: BASOPHILS # (AUTO) 0.1 /CMM (0.0-0.2); BASOPHILS % (AUTO) 0.8 % (0.0-2.0); EOSINOPHILS % (AUTO) 2.7 % (0.0-6.0); HEMATOCRIT 32 % (33-45); HEMOGLOBIN 10.6 g/dL (11.5-14.8); LYMPHOCYTES # (AUTO) 0.9 /CMM (0.8-4.8); LYMPHOCYTES % (AUTO) 13.4 % (20.0-44.0); MEAN CORPUSCULAR HGB CONC 33 g/dl (31.0-36.0); MEAN CORPUSCULAR VOLUME 100 fL (82-100); MONOCYTES # (AUTO) 0.5 /CMM (0.1-1.30); NEUTROPHILS % (AUTO) 75.1 % (43.0-81.0); PLATELET COUNT (AUTO) 213 /CMM (150-450); RED BLOOD CELL COUNT(AUTO) 3.21 MIL/uL (4.0-5.2); WHITE BLOOD COUNT (AUTO) 6.6 K/uL (4.3-11.0)
[2019-12-25 07:07] LABS: CALCIUM, SERUM 8.8 mg/dL (8.5-10.1); CREATININE 1.1 mg/dL (0.6-1.3); PHOSPHORUS 3.4 mg/dL (2.5-4.9); POTASSIUM 3.8 mmol/L (3.5-5.1)
[2019-12-25 07:27] LABS: MAGNESIUM 2.3 mg/dL (1.8-2.4)
--- NOTE | 2019-12-25 07:30 | NUR ---
TARE MAN NOTES, PATIENT ENDORSED TO FILI JACOBSEN FOR CONTINUATION OF CARE, PATIENT IN STABLE CONDITION, NO DISTRESS NOTED.
[2019-12-25] MEDS: INSULIN REGULAR, HUMAN 100 UNIT/ML 3 ML VIAL SQ PRN ×3 (07:33→17:08)
[2019-12-25] MEDS: BLOOD SUGAR DIAGNOSTIC 1 EACH STRIP VI SCH ×4 (07:36→21:26)
--- NOTE | 2019-12-25 08:10 | NUR ---
PEAR PICKER NOTE: PT IN BED, EYES OPEN, A/0X3. PT ON 4L NC SATURATION 97%. NO RESPIRATORY DISTRESS, SOB. LUNG SOUNDS CLEAR BILATERALLY. PT ON MONITOR SHOWING CONTROLLED AFIB. PT AMBULATORY WITH 1X ASSISTANCE, SKIN INTACT. PT HAS RFA 20G SALINE LOCKED, NO INFILTRATION OR INFECTION. BED IN LOCKED LOWEST POSITION. PT CALL LIGHT WITHIN REACH. ALL SAFETY MEASURES IN PLACE. WILL CONTINUE TO MONITOR CLOSELY.
[2019-12-25] MEDS: ISOSORBIDE MONONITRATE (30MG) 30 MG TAB.SR.24H PO SCH (08:52)
[2019-12-25] MEDS: FLUOXETINE HCL 20 MG CAPSULE PO SCH (08:52)
[2019-12-25] MEDS: SPIRONOLACTONE 25 MG TABLET PO SCH (08:53)
[2019-12-25] MEDS: CARVEDILOL 12.5 MG TABLET PO SCH ×2 (08:53→21:28)
[2019-12-25] MEDS: VALSARTAN 80 MG TABLET PO SCH (09:00)
--- NOTE | 2019-12-25 09:02 | NUR ---
ENVIRONMENTAL LAWYER NOTE: ROCK DOSE OF VALSARTAN WITHHELD, PT BP 123/84. ALDACTONE, COREG, AND IMDUR ALL GIVEN.
[2019-12-25 09:26] VITALS: BP 123/84
[2019-12-25] MEDS: DILTIAZEM HCL CD 240 MG PO SCH (10:30)
--- NOTE | 2019-12-25 10:50 | NUR ---
METAL ALLOY SCIENTIST NOTE: ROCK DOSE OF CARDIZEM WITHHELD, PER MD SET PARAMETER. PT BP 83/42, HR 94. WILL REASSESS VITALS
[2019-12-25 12:00] VITALS: BP 93/64
--- NOTE | 2019-12-25 13:12 | NUR ---
ROV[address] COURT REPORTER NOTE: PT BP INITIALLY 93/64, 15 MINUTES LATER 75/44. RECHECKED AT 80/57 MANUALLY. CARDIZEM AND VALSARTAN BOTH WITHHELD THIS AM. MD MORAN AWARE. AWAITING ORDERS OR RECOMMENDATIONS. Addendum: 12/25/19 at 1415 by ALEKSANDRA JACOBSEN RN [address] REPORTER NOTE: PT BP INITIALLY 93/64, 15 MINUTES LATER 75/44. RECHECKED AT 80/57 MANUALLY. CARDIZEM AND VALSARTAN BOTH WITHHELD THIS AM. MD MORAN AWARE, ORDER TO CONTINUE TO MONITOR, BP NOW 90/50.
--- NOTE | 2019-12-25 15:53 | NUR ---
CLIMATOLOGIST NOTES, PATIENT ENDORSED TO ISABEL PENN FOR CONTINUATION OF CARE, PATIENT WITH BP 93/46, PATIENT BREATHING EVEN AND UNLABORED, NO DISTRESS NOTED.
[2019-12-25 16:00] VITALS: BP 92/47
[2019-12-25] MEDS: ATORVASTATIN 10 MG TABLET PO SCH (17:06)
--- NOTE | 2019-12-25 19:15 | NUR ---
RN NOTES RECEIVED PT ON BED AWAKE A/O X3 ON O2 VIA NC AT 2L SPO2 98% NO SIGN AND SYMPTOMS OF RESPIARTORY DISTRESS, NO COMPLAINT OF PAIN, TELE MONITOR READS CONTROLLED AFIB 90'S SAFETY MEASURE MAINTAINED SIDE RAILS UP X3 BED ON LWOEST POSITION AND LOCKED CALL LIGHT WITHIN REACH WILL CONT TO MONITOR
--- NOTE | 2019-12-25 19:18 | NUR ---
LCSW NOTE: PT IN BED AWAKE AND ALERT. NO IN DISTRESS, NO SOB. ALL NEEDS ATTENDED, CALL LIGHT IN REACH. ALL SAFETY MEASURES OBSERVED. HAD DINNER, REPORT GIVEN TO NEXT RN FOR KELI.
[2019-12-25 20:08] VITALS: BP 106/57
[2019-12-25] MEDS: *INSULIN REGULAR(HUMULIN R)HUM 100 UNIT/ML VIAL SQ PRN (21:27)
--- NOTE | 2019-12-25 22:36 | NUR ---
REPORT GIVEN TO ИРИНА PENN FOR KELI
--- NOTE | 2019-12-25 22:38 | NUR ---
Received report from FILI Weller for KELI
[2019-12-26] VITALS (9 sets, daily range): BP systolic 90–125; BP diastolic 48–77
--- NOTE | 2019-12-26 06:54 | NUR ---
RN CLOSING NOTES: No acute changes noted throughout shift. Pt remains on O2 via NC, breathing even and unlabored. Controlled a-fib on tele monitor. Right forearm #20 patent and flushing. Kept clean/dry. Safety measures in place. Will endorse to oncoming nurse for KELI.
--- NOTE | 2019-12-26 07:15 | NUR ---
Tele/RN - Assessment Patient in bed awake, A/O X 3, denies chest pain at this time, no complaints overnight, states breathing better, on oxygen at 4lpm via NC, SpO2 93%. no apparent distress seen, tele shows A.Fib controlled. Saline lock on the RFA is patent, intact, flushing well. No labs today. Continue strict I&O monitoring. Fall and aspiration precautions maintained. Patient updated on plan of care and in agreement. Anticipate possible transfer to [facility] for MV PCI of the LCx and RCA with the need of atherectomy. Per daughter, will consult first with pt's primary photogrammetric technician, awaiting decision.
[2019-12-26] MEDS: BLOOD SUGAR DIAGNOSTIC 1 EACH STRIP VI SCH ×4 (07:32→21:21)
[2019-12-26] MEDS: INSULIN REGULAR, HUMAN 100 UNIT/ML 3 ML VIAL SQ PRN ×3 (07:35→17:03)
[2019-12-26] MEDS: SPIRONOLACTONE 25 MG TABLET PO SCH (08:17)
[2019-12-26] MEDS: CARVEDILOL 12.5 MG TABLET PO SCH ×2 (08:17→21:00)
[2019-12-26] MEDS: VALSARTAN 80 MG TABLET PO SCH (08:17)
[2019-12-26] MEDS: ISOSORBIDE MONONITRATE (30MG) 30 MG TAB.SR.24H PO SCH (08:17)
[2019-12-26] MEDS: DILTIAZEM HCL CD 240 MG PO SCH (08:17)
[2019-12-26] MEDS: FLUOXETINE HCL 20 MG CAPSULE PO SCH (08:17)
--- NOTE | 2019-12-26 14:29 | NUR ---
Tele/RN - Notes Seen and examined by Dr. Jones (Cardio), current BP 87/51, Md with order to give NS 250 bolus once, will evaluate BP meds, NPO after midnight for procedure tomorrow.
[2019-12-26] MEDS ORDERED: IV NS 0.9% 250 ML IV ONE (14:30)
--- NOTE | 2019-12-26 15:56 | NUR ---
Tele/RN - Notes Patient is awake, A.Fib controlled, denies chest pain, no c/o shortness of breath, lungs clear on auscultation, BP slightly improved 90/51 post fluid resuscitation (NS 250 ml). Will continue to monitor closely.
--- NOTE | 2019-12-26 16:00 | NUR ---
Tele/RN - Notes Relayed to Dr. Jones latest BP 90/51 MAP 64, per MD if MAP drops below 60 consider small boluses of IV NS.
[2019-12-26] MEDS: ATORVASTATIN 10 MG TABLET PO SCH (17:05)
--- NOTE | 2019-12-26 18:48 | NUR ---
Tele/RN - End of shift summary Patient's BP slowly improved, latest was 92/51 MAP 63, denies chest pain, A.Fib on the tele monitor, no apparent distress, afebrile, compliant with fluid restriction. Patient will be placed on NPO after midnight for atherectomy at [facility] scheduled for 7am, accepting MD is Dr. Jones, pick-up by Jose ([phone]) at 5am trip#[id number]. Call report to [phone] or [phone]. All needs attended. Will continue to monitor closely.
--- NOTE | 2019-12-26 19:05 | NUR ---
RN NOTES RECEIVED PT ON BED AWAKE A/O X3 ON O2 VIA NC AT 2L SPO2 98% NO SIGN AND SYMPTOMS OF RESPIRATORY DISTRESS, NO COMPLAINT OF PAIN,LATEST BP IS 95/54 HR 95 TELE MONITOR READS CONTROLLED AFIB 90'S SAFETY MEASURE MAINTAINED SIDE RAILS UP X3 BED ON LOWEST POSITION AND LOCKED CALL LIGHT WITHIN REACH WILL CONT TO MONITOR
--- NOTE | 2019-12-26 19:45 | NUR ---
1944 TRIED CALLING PATIENT'S DAUGHTER CHRIS TO INFORM HER OF PATIENT'S TRANSFER TO [place] IN AM FOR PROCEDURE 3X NO ANSWER. WILL KEEP TRYING.
--- NOTE | 2019-12-26 20:10 | NUR ---
Sherwin SPOKE WITH PATIENT'S DAUGHTER CARISSA AND SHE SAID SHE IS AWARE OF THE PROCEDURE AT [facility] IN AM AND THAT DR. TUTTLE AND DR. SAUNDERS SPOKE WITH HER ABOUT IT.
[2019-12-26] MEDS: *INSULIN REGULAR(HUMULIN R)HUM 100 UNIT/ML VIAL SQ PRN (21:22)
--- NOTE | 2019-12-26 21:23 | NUR ---
RN NOTES COREG NOT GIVEN DUE TO PT B/P IS 93/54 HR 68 WILL CONT TO MONITOR THE PT
--- NOTE | 2019-12-26 22:23 | NUR ---
BP RECHECKED 103/62 HR 63 PT IS SLEEPING WAKE UP EASILY SPO2 96%
[2019-12-27] VITALS: BP 93/59
[2019-12-27 04:00] VITALS: BP 132/62
[2019-12-27 04:24] VITALS: BP 132/62
--- NOTE | 2019-12-27 05:00 | NUR ---
RN NOTES TRANSPORT ARRIVE TO SPLICING SUPERVISOR PT, UPON PREPARING THE PT, PT ASK WEATHER STRIP MECHANIC MS JAMA WHERE SHE WILL GO AND WE TOLD HER THAT SHE WILL GO TO [facility] FOR A HEART PROCEDURE AND IT WAS SCHEDULE ALREADY AND HER DAUGHTER IS AWARE BUT PT TOLD US THAT SHE DIDNT KNOW THAT SHE WILL GO TO A SURGERY, I TOLD HER THAT HER DAUGHTER TALK TO THE DOCTOR YESTERDAY AND THEY AGREE THAT SHE WILL UNDERGO THE PROCEDURE , THE PT TOLD ME THAT SHE DONT WANT THE SURGERY AND SHE WANT TO TALK TO HER DAUGHTER, I TELL IT TO THE CHARGE NURSE WE WILL CALL THE DAUGHTER BRYANT
--- NOTE | 2019-12-27 05:25 | NUR ---
0575 DR. TUTTLE MADE AWARE THAT PATIENT IS REFUSING TO GO TO [facility]. HE SAID TALK TO PATIENT THRU [address] [facility].
--- NOTE | 2019-12-27 05:45 | NUR ---
[address] SAUNDERS AND MADE HIM AWARE THAT PATIENT IS REFUSING TO GO TO PROCEDURE UNTIL SHE TALKS TO HER DAUGHTER.
--- NOTE | 2019-12-27 05:55 | NUR ---
0555 [employer] J[employer] AND OTHER WRITERS PHONE USED TO TALK TO PATIENT IN [place], PATIENT KEPT INSISTING SHE DOES NOT KNOW ABOUT THE PROCEDURE AND WANTED TO TALK TO HER DAUGHTER FIRST. EXPLAINED TO HER THAT WE TRIED TO CALL HER DAUGHTER KIMBERLY MULTIPLE TIMES BUT NO ANSWER. PATIENT GOT UPSET TALKING THRU JOURNALISTS AND OTHER WRITERS AND JUST HUNG UP THE PHONE.
--- NOTE | 2019-12-27 06:00 | NUR ---
0600 TRANSPORT HERE TO [facility] O[facility] PATIENT BUT PATIENT IS STRONGLY REFUSING TO GO. SHE SAID SHE WANTS TO TALK TO HER DAUGHTER FIRST BECAUSE SHE CLAIMS NOBODY TOLD HER ABOUT THE PROCEDURE. CALLED PATIENT'S DAUGHTER KIMBERLY MULTIPLE TIMES BUT NO ANSWER. LEFT MESSAGE ON HER VOICEMAIL TO CALL HOSPITAL BACK. Addendum: 12/27/19 at 0630 by SANJEEV LANDIN RN 0500 TRANSPORT HERE TO [facility] PATIENT BUT PATIENT IS STRONGLY REFUSING TO GO. SHE SAID SHE WANTS TO TALK TO HER DAUGHTER FIRST BECAUSE SHE CLAIMS NOBODY TOLD HER ABOUT THE PROCEDURE. CALLED PATIENT'S DAUGHTER KIMBERLY MULTIPLE TIMES BUT NO ANSWER. LEFT MESSAGE ON HER VOICEMAIL TO CALL BACK HOSPITAL.
--- NOTE | 2019-12-27 06:05 | NUR ---
TRIED TO CALL DAUGHTER SEVERAL TIMES BUT NOT ANSWERING, WE EXPLAINED TO THE PT ABAOUT THE RISK AND BENEFITS OF THE PROCEDURE BUT PT IS KEEP ON REFUSING, WILL TRY TO REACH DAUGHTER CARISSA SOON POSSIBLE
--- NOTE | 2019-12-27 06:05 | NUR ---
FILI JOHNSON TRIED CALLING DAUGHTER PATIENT'S DAUGHTER AGAIN MULTIPLE TIMES BUT NO ANSWER.
--- NOTE | 2019-12-27 06:10 | NUR ---
0610 GLORY FROM [facility] SAME DAY SURGERY CALLED FOR REPORT. WE NOTIFIED HER THAT PATIENT IS REFUSING TO GO.
--- NOTE | 2019-12-27 06:15 | NUR ---
0615 CALLED PATIENT'S DAUGHTER AGAIN AT [phone] AND LEFT MESSAGE ON HER ANSWERING MACHINE.
--- NOTE | 2019-12-27 06:40 | NUR ---
0640 CALLED [facility] AND SPOKE TO ASHER BATES AND INFORMED HER THAT PATIENT REFUSED TO GO.
--- NOTE | 2019-12-27 06:45 | NUR ---
STILL CANNOT REACH THE DAUGHTER, CHARGE NURSE INFORMED THE SITUATION TO DR. TUTTLE AND DR. SAUNDERS AND ALSO THE [facility] PEOPLE ABOUT THE REFUSAL OF THE PT, EXPLAIN TO THE PT THAT WE WILL CANCEL THE PROCEDURE NOW BECAUSE SHE DONT WANT IT AND WE WILL STILL TRY TO CALL HER DAUGHTER SO SHE CAN TALK TO HER, PUT PT COMFORTABLY ON BED AND WE WILL CONT TO MONITOR
--- NOTE | 2019-12-27 07:26 | NUR ---
PT SLEEPING ON BED NO SIGN AND SYMPTOM OF DISTRESS NO PAIN COMPLAINT, NO SIGNIFICANT CHANGES ON CONDITION NOTED, ALL NEEDS ATTENDED, ENDORSED TO AM SHIFT ABOUT THE REFUSAL OF THE PT FOR THE HEART PROCEDURE, SAFETY MEASURE MAINTAINED BED ON LOWEST POSITION AND LOCKED SIDE RAILS UP X2
--- NOTE | 2019-12-27 07:30 | NUR ---
8073 PATIENT'S DAUGHTER CALLED BACK AND MADE HER AWARE THAT HER MOTHER WAS REFUSING TO GO WITHOUT TALKING TO HER. EXPLAINED TO HER THAT WE CANNOT FORCE PATIENT TO GO BECAUSE EVEN THRU ESTONIAN SPEAKING CATECHIST SHE WAS STRONGLY REFUSING TO GO AND GOT VERY UPSET. AFTER DAUGHTER TALKED TO PATIENT, PATIENT AGREED TO GO TO [facility] FOR PROCEDURE.
--- NOTE | 2019-12-27 07:40 | NUR ---
CALLED [facility] SAME [facility] AND SPOKE WITH FILI WARREN, SHE SAID OK TO SEND PATIENT NOW.
--- NOTE | 2019-12-27 07:45 | NUR ---
0745 [facility] WAS CALLED FOR TRANSPORT. NEW TRIP NUMBER [id number]. ETA 45 MINS.
[2019-12-27 08:00] VITALS: BP 130/76
--- NOTE | 2019-12-27 08:00 | NUR ---
SKEIN BLEACHER NOTES RECEIVED PATIENT IN BED. ALERT, AWAKE, ORIENTED WITH SOME CONFUSION. SPOKE TO DAUGHTER ELIER. OK TO SIGN CONSENT FOR MV PCI. PATIENT ON 4 LPM VIA NASAL CANNULA. NO SOB NOTED. PATIENT ON NPO. LFA HEPLOCK INTACT AND FLUSHED WELL. PLAN OF CARE DISCUSSED WITH PATIENT. BED IN LOWEST AND LOCKED POSITION. SAFETY MEASURES OBSERVED. CALL LIGHT WITHIN REACH. WILL CONTINUE TO MONITOR.
[2019-12-27] MEDS: ISOSORBIDE MONONITRATE (30MG) 30 MG TAB.SR.24H PO SCH (09:00)
[2019-12-27] MEDS: DILTIAZEM HCL CD 240 MG PO SCH (09:00)
[2019-12-27] MEDS ORDERED: VALSARTAN 80 MG TABLET PO SCH (09:00)
[2019-12-27] MEDS: CARVEDILOL 12.5 MG TABLET PO SCH (09:00)
[2019-12-27] MEDS: SPIRONOLACTONE 25 MG TABLET PO SCH (09:00)
[2019-12-27] MEDS: FLUOXETINE HCL 20 MG CAPSULE PO SCH (09:00)
[2019-12-27] MEDS: BLOOD SUGAR DIAGNOSTIC 1 EACH STRIP VI SCH (09:13)
--- NOTE | 2019-12-27 09:24 | NUR ---
SECURITY SITE SUPERVISOR NOTE AMBULANCE ARRIVED. REPORT GIVEN. PATIENT WENT TO [facility] IN STABLE CONDITION. NO SOB NOTED AT THIS TIME. BELONGINGS CHECKED AND WENT TO [facility] WITH AMBULANCE PERSONAL.
--- NOTE | 2019-12-27 11:53 | NUR ---
MONUMENT INSTALLER NOTE STILL AT [facility]
--- NOTE | 2019-12-27 15:03 | NUR ---
GROUND CREW LINES PERSON NOTES PATIENT STILL AT [facility]
--- NOTE | 2019-12-27 16:08 | NUR ---
telegraph equipment maintainer note at [facility]
--- NOTE | 2019-12-27 16:51 | NUR ---
telemetry tech note charge nurse called to [facility] to update patient condition ,stated that patient is not going to back to [facility] after procedure, dr alvarez notified
== END 2019-12-27 16:00 | disposition short-term general hospital (02) | DRG 286 ==
LOC: ER 13:54 → TELE-TD 17:03 → TELE1 12-20 15:46
PROVIDERS: ADMIT Internal Medicine; ATTEND Internal Medicine
PROC: 4A023N7 Measurement of Cardiac Sampling and Pressure, Left Heart, Percutaneous Approach (ICD-10-PCS; principal; 2019-12-24)
PROC: B211YZZ Fluoroscopy of Multiple Coronary Arteries using Other Contrast (ICD-10-PCS; 2019-12-24)
DX: I25.10 Atherosclerotic heart disease of native coronary artery without angina pectoris (principal); N17.0 Acute kidney failure with tubular necrosis; I50.23 Acute on chronic systolic (congestive) heart failure; E43 Unspecified severe protein-calorie malnutrition; I13.0 Hypertensive heart and chronic kidney disease with heart failure and stage 1 through stage 4 chronic kidney disease, or unspecified chronic kidney disease; I48.92 Unspecified atrial flutter; I48.91 Unspecified atrial fibrillation; N18.9 Chronic kidney disease, unspecified; E11.22 Type 2 diabetes mellitus with diabetic chronic kidney disease; E78.5 Hyperlipidemia, unspecified; Z79.84 Long term (current) use of oral hypoglycemic drugs; F32.9 Major depressive disorder, single episode, unspecified; E87.6 Hypokalemia; I25.2 Old myocardial infarction; I70.0 Atherosclerosis of aorta; I25.5 Ischemic cardiomyopathy; Z79.01 Long term (current) use of anticoagulants; Z85.3 Personal history of malignant neoplasm of breast; Z90.11 Acquired absence of right breast and nipple
CPT/HCPCS: 36415; 36600; 71045-TC; 74018; 75574; 80048-TC; 80053-TC; 80076-TC; 82803-TC; 82947-TC; 82962-TC; 83735-TC; 84100-TC; 84439-TC; 84443-TC; 84484-TC; 85025-TC; 85610-TC; 85730-TC; 87081-TC; 93307-TC; 97110-TC; 97112-TC; 97116-TC; 97530-TC; C1887; C9803; G0378; G0500; J0282; J1644; J1650; J1815; J1940; J2250; J2405; J3010; J3490; J7030; J7050; J7060; Q9967

== ENCOUNTER 2020-01-22 16:49 | Inpatient (IN) | payer MEDICARE, OTHER ==
[~2020-01-22] VITALS: Ht 165.1 cm; Wt 64.9 kg
[~2020-01-22 16:49] MED LIST: APIX2.5T PO; FLUO20CA42 PO; FURO40TA5 PO; GLIM4TAB37 PO; HYDR25TA4 PO; ISOS120T13 PO; METO-358 PO; ROSU10TA29 PO; SITA1TAB2 PO; SPIR25TA6 PO
[2020-01-22] MEDS ORDERED: DILTIAZEM HCL 25 MG IV IVP ONE (17:00)
[2020-01-22] MEDS ORDERED: ASPIRIN 81 MG TAB.CHEW PO ONE (17:00)
--- NOTE | 2020-01-22 17:00 | NUR ---
[id number], FROM SNF C/O CHEST PAIN. PT NOTED WITH RVR UPON ARRIVAL. NOTED WITH SOB. NO DIAPHORESIS. PT ALERT AND ABLE TO FOLLOW DIRECTIONS. AWAITING FOR MD ANTHONY
[2020-01-22] MEDS ORDERED: ACET-2605 PO (17:02)
[2020-01-22] MEDS ORDERED: INSU100V42 SQ ×2 (17:02)
[2020-01-22] MEDS ORDERED: MAGN400O6 PO (17:02)
[2020-01-22] MEDS ORDERED: ACET-868 PO (17:02)
[2020-01-22] MEDS ORDERED: INSU100I45 SQ (17:02)
[2020-01-22] MEDS ORDERED: EMPA10TA PO (17:02)
[2020-01-22] MEDS ORDERED: METO25TA6 PO (17:02)
[2020-01-22] MEDS ORDERED: BISA10SU11 RC (17:02)
[2020-01-22] MEDS ORDERED: ASPI-1420 PO (17:02)
[2020-01-22] MEDS ORDERED: ATOR40TA PO (17:02)
[2020-01-22] MEDS ORDERED: CLOP75TA15 PO (17:02)
[2020-01-22] MEDS ORDERED: INSU100V7 SQ (17:02)
[2020-01-22] MEDS ORDERED: ASPIRIN 81 MG TAB.CHEW ONE (17:11)
[2020-01-22] MEDS ORDERED: DILTIAZEM HCL 50 MG IV ONE ×2 (17:12→17:13)
[2020-01-22 17:13] LABS: BASOPHILS # (AUTO) 0.1 /CMM (0.0-0.2); BASOPHILS % (AUTO) 1.2 % (0.0-2.0); EOSINOPHILS % (AUTO) 3.4 % (0.0-6.0); HEMATOCRIT 28 % (33-45); HEMOGLOBIN 9.2 g/dL (11.5-14.8); LYMPHOCYTES # (AUTO) 0.7 /CMM (0.8-4.8); LYMPHOCYTES % (AUTO) 10.6 % (20.0-44.0); MEAN CORPUSCULAR HGB CONC 33 g/dl (31.0-36.0); MEAN CORPUSCULAR VOLUME 107 fL (82-100); MONOCYTES # (AUTO) 0.4 /CMM (0.1-1.30); MONOCYTES % (AUTO) 5.9 % (2.0-12.0); NEUTROPHILS # (AUTO) 5.1 /CMM (1.8-8.9); NEUTROPHILS % (AUTO) 78.9 % (43.0-81.0); PLATELET COUNT (AUTO) 209 /CMM (150-450); RED BLOOD CELL COUNT(AUTO) 2.66 MIL/uL (4.0-5.2); WHITE BLOOD COUNT (AUTO) 6.4 K/uL (4.3-11.0)
[2020-01-22 17:28] LABS: BILIRUBIN,DIRECT 0.5 mg/dL (0.0-0.2); BILIRUBIN,TOTAL 1.3 mg/dL (0.2-1.0); CALCIUM, SERUM 8.4 mg/dL (8.5-10.1); CREATININE 1.2 mg/dL (0.6-1.3); POTASSIUM 2.9 mmol/L (3.5-5.1); TOTAL PROTEIN, SERUM 6.2 g/dL (6.4-8.2)
--- NOTE | 2020-01-22 17:38 | NUR ---
PT IN BED ALERT AND ABLE TO FOLLOW COMMANDS. NO PAIN OR DISCOMFORT AT THIS TIME. V/S STABLE. NO SOB. ALL NEEDS ATTENDED
--- NOTE | 2020-01-22 17:45 | NUR ---
COVID SWAB TAKEN
--- NOTE | 2020-01-22 17:46 | NUR ---
EPIC MUSIC INSTRUCTOR PAGED
--- NOTE | 2020-01-22 17:52 | NUR ---
MOVE SHEET COMPLETE AND CALLED FOR BED.
[2020-01-22] MEDS ORDERED: Z GUARD REMEDY 2 OZ OINT TP PRN (19:00)
[2020-01-22] MEDS ORDERED: ACETAMINOPHEN 325 MG TABLET PO PRN (19:00)
[2020-01-22] MEDS ORDERED: MAGNESIUM HYDROXIDE 30 ML UDC PO PRN ×2 (19:00)
[2020-01-22] MEDS ORDERED: HYDROCODONE/APAP 5/325MG TABLET PO PRN (19:00)
[2020-01-22] MEDS ORDERED: DEXTROSE 50%-WATER 50 ML DISP.SYRIN IV PRN (19:00)
[2020-01-22] MEDS ORDERED: ONDANSETRON HCL/PF 4 MG/2 ML VIAL IVP PRN (19:00)
[2020-01-22] MEDS ORDERED: MAG HYDROX/AL HYDROX/SIMETH 30 ML UDC PO PRN (19:00)
[2020-01-22] MEDS ORDERED: BISACODYL SUPP (10 MG) 10 MG/SUPP.RECT SUPP.RECT RC PRN (19:00)
[2020-01-22 19:14] LABS: BAND % (MANUAL) 2 % (0.0-5.0); NEUTROPHILS % (MANUAL) 76 (42-76)
[2020-01-22 19:15] LABS: EOSINOPHILS % (MANUAL) 3 % (0-4); LYMPHOCYTES % (MANUAL) 13 % (16-48); MONOCYTES % (MANUAL) 6 % (0-11.0)
--- NOTE | 2020-01-22 19:38 | NUR ---
Patient is resting comfortably in bed with eyes closed. Easily aroused. VSS. A Fib on monitor worker w/ rate fluctuating between 90 to 110. no discomfort or distress noted. will cont to monitor ,
--- NOTE | 2020-01-22 19:53 | NUR ---
report given to Carolina
--- NOTE | 2020-01-22 20:09 | NUR ---
PER NURSING SUPERVISOR FISH HATCHERY PT WILL BE GOING TO 118-1.
[2020-01-22 20:39] VITALS: BP 108/78
--- NOTE | 2020-01-22 20:39 | NUR ---
ADMITTED PATIENT FROM ER TO ROOM 118-1 VIA [facility]. PATIENT IS ALERT AND ORIENTED 2-3, ABLE TO VERBALIZED NEEDS. MONTSERRATIAN SPEAKING WITH MINIMAL MACEDONIAN. ON O2 2LPM VIA NASAL CANNULA. NO SOB OR ANY RESPIRATORY DISTRESS. SAFELY TRANSFERRED FROM [facility] TO BED. PUT ON TELE MONITOR, WITH CONTROLLED A-FIB. HR 103. HEAD TO TOE ASSESSMENT DONE. NOTED WITH DISCOLORATION ON RIGHT HIP, RIGHT INNER THIGH, RIGHT HAND, AND LEFT ARM. SKIN IS INTACT. INITIAL ASSESSMENT DONE. VITALS SIGNS CHECKED AND RECORDED. WITH IV ON RIGHT HAND #20 PATENT AND FLUSHED. SCD REFUSED. DUE MEDS STARTED. SWALLOW TEST DONE AND PATIENT ABLE TO TOLERATE APPLESAUCE AND JUICE WITHOUT COUGHING. SAFETY MEASURES IMPLEMENTED. BED LOCKED AND IN LOWEST POSITION. SIDE RAILS UP X2. CALL LIGHT WITHIN REACH. WILL CONTINUE TO MONITOR.
--- NOTE | 2020-01-22 20:45 | NUR ---
PT WAS TRANSFERRED TO [facility] UNDER ACLS. BED SIDE REPORT GIVEN TO RUIZ
[2020-01-22] MEDS: FUROSEMIDE 40 MG/4 ML VIAL IV SCH (21:06)
[2020-01-22] MEDS: ATORVASTATIN 40 MG TABLET PO SCH (21:07)
[2020-01-22] MEDS: POTASSIUM CL. PREMIX PERIPHER. 50 ML IV SCH ×2 (21:07→22:19)
[2020-01-22] MEDS: BLOOD SUGAR DIAGNOSTIC 1 EACH STRIP VI SCH (21:27)
[2020-01-22] MEDS: *INSULIN REGULAR(HUMULIN R)HUM 100 UNIT/ML VIAL SQ PRN (21:27)
[2020-01-22] MEDS ORDERED: POTASSIUM CHLORIDE 20 MEQ TAB.PRT.SR PO ONE (22:30)
--- NOTE | 2020-01-22 22:32 | NUR ---
reported to Lesley San ONLINE COMMUNICATIONS SPECIALIST on-call that patient is complaining of pain on iv site due to KCL running. No phlebitis or infiltration noted. Jaswinder Sutton ONLINE COMMUNICATIONS SPECIALIST ordered to discontinue IV KCL and change to potassium chloride 40meq PO noted and carried out.
[2020-01-23] VITALS: BP 104/66
[2020-01-23 04:00] VITALS: BP 103/65
[2020-01-23 06:01] LABS: BASOPHILS % (AUTO) 0.8 % (0.0-2.0); EOSINOPHILS % (AUTO) 4.3 % (0.0-6.0); HEMATOCRIT 28 % (33-45); HEMOGLOBIN 9.1 g/dL (11.5-14.8); LYMPHOCYTES # (AUTO) 0.7 /CMM (0.8-4.8); LYMPHOCYTES % (AUTO) 15.9 % (20.0-44.0); MEAN CORPUSCULAR HGB CONC 33 g/dl (31.0-36.0); MEAN CORPUSCULAR VOLUME 106 fL (82-100); MONOCYTES # (AUTO) 0.4 /CMM (0.1-1.30); MONOCYTES % (AUTO) 8.3 % (2.0-12.0); NEUTROPHILS # (AUTO) 3.3 /CMM (1.8-8.9); NEUTROPHILS % (AUTO) 70.7 % (43.0-81.0); PLATELET COUNT (AUTO) 188 /CMM (150-450); RED BLOOD CELL COUNT(AUTO) 2.63 MIL/uL (4.0-5.2); WHITE BLOOD COUNT (AUTO) 4.6 K/uL (4.3-11.0)
[2020-01-23 06:48] LABS: CALCIUM, SERUM 8.5 mg/dL (8.5-10.1); MAGNESIUM 2.3 mg/dL (1.8-2.4); POTASSIUM 3.6 mmol/L (3.5-5.1)
--- NOTE | 2020-01-23 07:11 | NUR ---
RN NOTES PATIENT SLEEPING IN BED. NO SOB OR ANY RESPIRATION. ON O2 2LPM VIA NASAL CANNULA. SPO2 @ 99%. ON TELE MONITOR, CONTROLLED A-FIB HR 100'S. ALL NEEDS ATTENDED. SAFETY MEASURES MAINTAINED. BED LOCKED AND IN LOWEST POSITION. SIDE RAILS UP X2. CALL LIGHT WITHIN REACH. ENDORSED TO ONCOMING SHIFT.
--- NOTE | 2020-01-23 07:30 | NUR ---
RN MAURI PATIENT IN BED, NO S/S OF DISTRESS, 2L NC, O2 SAT 100%, A/O X 3, PERUVIAN SPEAKING, MINIMAL [place]ER, INCONTINENT, R HIP, R INNER THIGH, R HAND, L ARM DISCOLORATION/ BRUISING, CARDIAC DIET, R HAND 20G INTACT CLEAN DRY PATENT, FLUSHES WELL, BED IN LOWEST LOCKED POSITION, CALL LIGHT WITHIN REACH, SAFETY MEASURES IN PLACE, WILL CONTINUE TO MONITOR. Addendum: 01/23/20 at 0756 by SANAM YEN RN PATIENT ON CLUTCH OPERATOR, SINUS TACHYCARDIA NOTED.
[2020-01-23 08:00] VITALS: BP 116/73
[2020-01-23] MEDS: BLOOD SUGAR DIAGNOSTIC 1 EACH STRIP VI SCH ×4 (08:23→21:32)
[2020-01-23] MEDS ORDERED: FUROSEMIDE 40 MG TABLET PO SCH (09:00)
[2020-01-23] MEDS: FLUOXETINE HCL 20 MG CAPSULE PO SCH (09:04)
[2020-01-23] MEDS: SPIRONOLACTONE 25 MG TABLET PO SCH (09:06)
[2020-01-23] MEDS: METOPROLOL TARTRATE 25 MG TABLET PO SCH ×2 (09:06→17:00)
[2020-01-23] MEDS: CLOPIDOGREL BISULFATE 75 MG TABLET PO SCH (09:06)
[2020-01-23] MEDS: ASPIRIN EC 81 MG TABLET.DR PO SCH (09:07)
[2020-01-23] MEDS: APIXABAN 2.5 MG TABLET PO SCH ×2 (09:07→17:00)
[2020-01-23] MEDS: FUROSEMIDE 40 MG/4 ML VIAL IV SCH ×3 (09:07→17:00)
[2020-01-23] MEDS ORDERED: FUROSEMIDE 40 MG/4 ML VIAL IV SCH (10:00)
[2020-01-23 10:20] LABS: MAGNESIUM 2.4 mg/dL (1.8-2.4); PHOSPHORUS 4.1 mg/dL (2.5-4.9)
[2020-01-23] MEDS: DILTIAZEM HCL CD 240 MG PO SCH (10:20)
[2020-01-23] MEDS: POTASSIUM CHLORIDE 20 MEQ TAB.PRT.SR PO SCH ×3 (10:20→12:43)
[2020-01-23 10:21] LABS: THYROID STIMULATING HORMONE 0.909 uIU/mL (0.358-3.74)
[2020-01-23] MEDS: DIGOXIN INJ 0.5 MG/2 ML AMPUL IV SCH ×3 (11:53→23:29)
[2020-01-23 12:00] VITALS: BP 108/70
[2020-01-23] MEDS: INSULIN REGULAR, HUMAN 100 UNIT/ML 3 ML VIAL SQ PRN ×2 (12:00→17:18)
[2020-01-23 16:00] VITALS: BP 95/57
--- NOTE | 2020-01-23 19:15 | NUR ---
RN NOTEON 2 L OF 2 PT ALERT AND ORIENTED X 2 WITH FORGETFULNESS, REORIENTED PT PRN, ON 2 L OF O2 VIA NC. NO SIGNS OF RESPIRATORY DISTRESS, DENIES PAIN OR DISCOMFORT, ASSISTED TO BEDSIDE COMMODE WITH 2 PERSON ASSIST. IV LINES FLUSHED AND PATENT. CALL LIGHT WITHIN REACH, SAFETY MEASURES IN PLACE, BED LOCKED AND IN LOWEST POSITION, SIDE RAILS UP X 2, WILL MONITOR PT.
--- NOTE | 2020-01-23 19:22 | NUR ---
PATIENT IN BED, NO S/S OF DISTRESS, NC 2L, A/O X 3, INCONTINENT, DIAPER IN PLACE, PT CONSULT ORDERED, DISCOLORATION OF R HIP R INNER THIGH R HAND L ARM, CARDIA DIET, R HAND IV PATENT FLUSHES EASILY CLEAN DRY INTACT, BED IN LOWEST LOCKED POSITION, SAFETY MEASURES IN PLACE, CALL LIGHT WITHIN REACH.
[2020-01-23 20:00] VITALS: BP 101/62
[2020-01-23] MEDS: *INSULIN REGULAR(HUMULIN R)HUM 100 UNIT/ML VIAL SQ PRN (21:27)
[2020-01-23] MEDS: ATORVASTATIN 40 MG TABLET PO SCH (21:32)
--- NOTE | 2020-01-23 23:29 | NUR ---
RN NOTE PT NOTED WITH DECREASED HEART RATE VARYING BETWEEN 50-65. HEART RATE RIGHT NOW IS 54 VIA PLAYROOM ATTENDANT. DIGOXIN IV HELD. CHARGE NURSE SANJEEV DURHAM.
[2020-01-24] VITALS: BP 107/54
--- NOTE | 2020-01-24 02:41 | NUR ---
RN NOTE REPORT GIVEN TO KATRINA PENN FOR KELI.
[2020-01-24 04:00] VITALS: BP 112/80
[2020-01-24 06:05] LABS: EOSINOPHILS % (AUTO) 4.3 % (0.0-6.0); HEMATOCRIT 27 % (33-45); HEMOGLOBIN 8.9 g/dL (11.5-14.8); LYMPHOCYTES # (AUTO) 0.7 /CMM (0.8-4.8); LYMPHOCYTES % (AUTO) 14.6 % (20.0-44.0); MEAN CORPUSCULAR HGB CONC 32 g/dl (31.0-36.0); MEAN CORPUSCULAR VOLUME 106 fL (82-100); MONOCYTES # (AUTO) 0.4 /CMM (0.1-1.30); MONOCYTES % (AUTO) 7.4 % (2.0-12.0); NEUTROPHILS # (AUTO) 3.5 /CMM (1.8-8.9); NEUTROPHILS % (AUTO) 72.7 % (43.0-81.0); PLATELET COUNT (AUTO) 193 /CMM (150-450); RED BLOOD CELL COUNT(AUTO) 2.58 MIL/uL (4.0-5.2); WHITE BLOOD COUNT (AUTO) 4.8 K/uL (4.3-11.0)
[2020-01-24 06:09] LABS: ALBUMIN 2.9 g/dL (3.4-5.0); BILIRUBIN,TOTAL 1.1 mg/dL (0.2-1.0); CALCIUM, SERUM 8.7 mg/dL (8.5-10.1); CREATININE 1.2 mg/dL (0.6-1.3); MAGNESIUM 2.4 mg/dL (1.8-2.4); PHOSPHORUS 3.6 mg/dL (2.5-4.9); POTASSIUM 4.3 mmol/L (3.5-5.1); TOTAL PROTEIN, SERUM 5.9 g/dL (6.4-8.2)
[2020-01-24 06:29] LABS: EOSINOPHILS % (MANUAL) 3 % (0-4); LYMPHOCYTES % (MANUAL) 25 % (16-48); MONOCYTES % (MANUAL) 5 % (0-11.0); NEUTROPHILS % (MANUAL) 67 (42-76)
--- NOTE | 2020-01-24 07:17 | NUR ---
RN NOTE PT REMAIN STABLE NO CHANGES DURING SHIFT. ENDORSED TO AM RN FOR KELI
[2020-01-24] MEDS: BLOOD SUGAR DIAGNOSTIC 1 EACH STRIP VI SCH ×2 (07:30→12:06)
--- NOTE | 2020-01-24 07:30 | NUR ---
RN TELE1 PATIENT IN BED NO S/S OF DISTRESS, 2L NC, O2 SAT 100%, A/O X 3, TELE MONITOR IN PLACE, CONTROLLED A FIB, UP TO BEDSIDE COMMODE WITH 1 TO 1 ASSIST, FALL RISK, BED ALARM ON, CARDIAC DIET, IV R HAND 22G INTAT PATENT CLEAN FLUSHES WELL, BED IN LOWEST LOCKED POSITION, CALL LIGHT WITHIN REACH, SAFETY MEASURES INN PLACE WILL CONTINUE TO MONITOR.
[2020-01-24 08:00] VITALS: BP 120/66
[2020-01-24] MEDS: FLUOXETINE HCL 20 MG CAPSULE PO SCH (08:34)
[2020-01-24] MEDS: ASPIRIN EC 81 MG TABLET.DR PO SCH (08:34)
[2020-01-24] MEDS: SPIRONOLACTONE 25 MG TABLET PO SCH (08:34)
[2020-01-24] MEDS: DILTIAZEM HCL CD 240 MG PO SCH (08:35)
[2020-01-24] MEDS: METOPROLOL TARTRATE 25 MG TABLET PO SCH (08:35)
[2020-01-24] MEDS: CLOPIDOGREL BISULFATE 75 MG TABLET PO SCH (08:35)
[2020-01-24] MEDS: APIXABAN 2.5 MG TABLET PO SCH (08:37)
[2020-01-24] MEDS: INSULIN REGULAR, HUMAN 100 UNIT/ML 3 ML VIAL SQ PRN ×2 (08:38→12:08)
[2020-01-24] MEDS: FUROSEMIDE 100 MG/10 ML VIAL IV SCH ×2 (10:56→14:54)
[2020-01-24] MEDS ORDERED: DILT240C88 PO (11:04)
[2020-01-24 12:00] VITALS: BP 110/61
--- NOTE | 2020-01-24 16:00 | NUR ---
PLUMBING WAREHOUSE HELPER GAVE REPORT ON PATIENT TO [facility] AT [facility]. ALL OF HER QUESTIONS WERE ANSWERED AND CALL BACK NUMBER WAS PROVIDED IN CASE SHE HAS MORE QUESTIONS.
--- NOTE | 2020-01-24 16:54 | NUR ---
SNUFF PACKING MACHINE OPERATOR PATIENT PICKED UP BY [facility] FOR TRANSPORT, GAVE REPORT TO THE TRANSPORT STAFF CANDI CHOI, IV REMOVED, PATIENT IS CLEAN AND DRY, O2 SAT 97% WITHOUT O2, AMBULATES WITH WALKER AND 1 TO 1 ASSIST, PATIENT REPORTS SHE IS PREPARED TO LEAVE. NOTIFIED DAUGHTER KATRINA OF [facility].
== END 2020-01-24 17:00 | DRG 280 ==
LOC: ER 16:54 → ICU 19:46 → TELE-TD 20:15 → TELE1 20:16 → TELE-TD 20:56 → TELE1 01-23 11:16 → MEDSG1 01-24 10:57
PROVIDERS: ADMIT Internal Medicine; ATTEND Internal Medicine
DX: I48.91 Unspecified atrial fibrillation (principal); E43 Unspecified severe protein-calorie malnutrition; I21.A1 Myocardial infarction type 2; I50.23 Acute on chronic systolic (congestive) heart failure; N17.0 Acute kidney failure with tubular necrosis; I13.0 Hypertensive heart and chronic kidney disease with heart failure and stage 1 through stage 4 chronic kidney disease, or unspecified chronic kidney disease; D62 Acute posthemorrhagic anemia; Z79.4 Long term (current) use of insulin; I25.10 Atherosclerotic heart disease of native coronary artery without angina pectoris; E11.22 Type 2 diabetes mellitus with diabetic chronic kidney disease; N18.9 Chronic kidney disease, unspecified; F03.90 Unspecified dementia, unspecified severity, without behavioral disturbance, psychotic disturbance, mood disturbance, and anxiety; Z68.23 Body mass index [BMI] 23.0-23.9, adult; Z79.02 Long term (current) use of antithrombotics/antiplatelets; Z79.899 Other long term (current) drug therapy; I48.92 Unspecified atrial flutter; I25.2 Old myocardial infarction; F32.9 Major depressive disorder, single episode, unspecified; E78.5 Hyperlipidemia, unspecified; E87.6 Hypokalemia; I70.0 Atherosclerosis of aorta; Z66 Do not resuscitate; Z79.01 Long term (current) use of anticoagulants
CPT/HCPCS: 36415; 71045-TC; 80048-TC; 80053-TC; 80061-TC; 80076-TC; 82728-TC; 82962-TC; 83540-TC; 83735-TC; 84100-TC; 84439-TC; 84443-TC; 84484-TC; 85025-TC; 87081-TC; 97116-TC; 97530-TC; C9803; G0378; J1160; J1815; J1940; J3480; J3490; J7050